=== PATIENT | male | born 1990 | race Asian ===

== ENCOUNTER 2017-08-07 12:45 | Inpatient (IN) | payer OTHER ==
[2017-08-05 04:00] VITALS: BP 126/80
[~2017-08-07] VITALS: Ht 167.6 cm; Wt 73.0 kg
[2017-08-07 12:51] VITALS: BP 109/71
[2017-08-07] MEDS ORDERED: Ampicillin/Sulbactam Sod 3 GM in NS 110 ML IVPB ONE (13:45)
[2017-08-07] MEDS ORDERED: Unasyn 3gm Inj ONE (14:09)
[2017-08-07 14:24] LABS: BASOPHILS % (AUTO) 0.9 % (0.0-2.0); EOSINOPHILS % (AUTO) 1.6 % (0.0-3.0); LYMPHOCYTES % (AUTO) 27.3 % (20.0-45.0); MEAN CORPUSCULAR HEMOGLOBIN 29.9 PG (27.0-31.0); MEAN CORPUSCULAR HGB CONC 32.6 G/DL (32.0-36.0); MEAN CORPUSCULAR VOLUME 92 FL (80-99); MEAN PLATELET VOLUME 8.9 FL (6.5-10.1); MONOCYTES % (AUTO) 8.1 % (1.0-10.0); NEUTROPHILS % (AUTO) 62.1 % (45.0-75.0); PLATELET COUNT 249 K/UL (150-450); RED BLOOD COUNT 4.65 M/UL (4.70-6.10); RED CELL DISTRIBUTION WIDTH 11.3 % (11.6-14.8); WHITE BLOOD COUNT 7.1 K/UL (4.8-10.8)
[2017-08-07 14:42] LABS: ALANINE AMINOTRANSFERASE 13 U/L (3-41); ALBUMIN/GLOBULIN RATIO 1.7 (1.0-2.7); ANION GAP 15 (5-15); ASPARTATE AMINO TRANSFERASE 15 U/L (5-40); CALCIUM 9.5 mg/dL (8.6-10.2); CARBON DIOXIDE 26 mEQ/L (20-30); CHLORIDE 100 mEQ/L (98-107); CREATININE 0.9 mg/dL (0.7-1.2); GLOMERULAR FILTRATION RATE > 60 mL/min (>60); HEMOLYSIS 5; SODIUM 141 mEQ/L (135-145); TOTAL PROTEIN 7.1 g/dL (6.6-8.7)
[2017-08-07] MEDS ORDERED: Morphine Sulfate 4mg/ml Inj IVP PRN (14:45)
[2017-08-07] MEDS ORDERED: Miralax 17gm pkt ORAL PRN (14:45)
[2017-08-07] MEDS ORDERED: Mylanta II UD 30ml ORAL PRN (14:45)
[2017-08-07] MEDS ORDERED: Morphine Sulfate 2mg/ml Inj IVP PRN (14:45)
--- NOTE | 2017-08-07 14:47 | Emergency Room Report ---
History of Present Illness General Chief Complaint: General Complaint Source: Patient Present Illness HPI 27-year-old male presents to ED for evaluation. Patient presents with hidradenitis to his bilateral groin into his left axilla. Has been there for several months. Has had previous operation on the groin area without success. Patient referred by Dr. Mccann for evaluation. Denies fevers or chills. Denies pain. No other aggravating relieving factors. Denies any other associated symptoms Allergies: Coded Allergies: No Known Allergies (Unverified , 08/07/17) Patient History Past Medical History: none Past Surgical History: none Pertinent Family History: none Social History: Denies: smoking, alcohol use, drug use Immunizations: UTD Reviewed Nursing Documentation: PMH: Agreed, PSxH: Agreed Nursing Documentation-PMH Past Medical History: No History, Except For Review of Systems All Other Systems: negative except mentioned in HPI Physical Exam Vital Signs Date Time Temp Pulse Resp B/P (MAP) Pulse Ox O2 Delivery O2 Flow Rate FiO2 08/07/17 12:51 97.9 73 16 109/71 99 Room Air Sp02 EP Interpretation: reviewed, normal General Appearance: no apparent distress, alert, GCS 15, non-toxic Head: normocephalic, atraumatic Eyes: bilateral eye normal inspection, bilateral eye PERRL ENT: hearing grossly normal, normal pharynx, no angioedema, normal voice Neck: full range of motion, supple/symm/no masses Respiratory: chest non-tender, lungs clear, normal breath sounds, speaking full sentences Cardiovascular #1: regular rate, rhythm, no edema Cardiovascular #2: 2+ carotid (R), 2+ carotid (L), 2+ radial (R), 2+ radial (L) , 2+ dorsalis pedis (R), 2+ dorsalis pedis (L) Gastrointestinal: normal bowel sounds, non tender, soft, non-distended, no guarding, no rebound Rectal: deferred Genitourinary: normal inspection, no CVA tenderness Musculoskeletal: back normal, gait/station normal, normal range of motion, non- tender Neurologic: alert, oriented x3, responsive, motor strength/tone normal, sensory intact, speech normal Psychiatric: judgement/insight normal, memory normal, mood/affect normal, no suicidal/homicidal ideation Reflexes: 3+ bicep (R), 3+ bicep (L), 3+ tricep (R), 3+ tricep (L), 3+ knee (R) , 3+ knee (L) Skin: no rash, warm/dry, well hydrated, other - groin hidradenitis, L axilla hidradenitis Lymphatic: no adenopathy Medical Decision Making Diagnostic Impression: Primary Impression: Hidradenitis ER Course Hospital Course 27-year-old male referred to ED for hidradenitis of his bilateral groin and L axilla Differential diagnoses include: Cellulitis, abscess, rash. Clinical course Patient placed on stretcher. After initial history and physical I ordered labs , blood Cx labs reviewed - no leukocytosis, Hb/Hct stable, no electrolyte abnormalities. antibiotics given. Dr. Mccann consulted and aware. Case discussed with Dr Arora and he agreed to accept the patient to his service for further care and support Diagnosis - hidradenitis Patient admitted to floor in serious condition Labs Test 08/07/17 14:00 White Blood Count 7.1 K/UL (4.8-10.8) Red Blood Count 4.65 M/UL (4.70-6.10) Hemoglobin 13.9 G/DL (14.2-18.0) Hematocrit 42.7 % (42.0-52.0) Mean Corpuscular Volume 92 FL (80-99) Mean Corpuscular Hemoglobin 29.9 PG (27.0-31.0) Mean Corpuscular Hemoglobin Concent 32.6 G/DL (32.0-36.0) Red Cell Distribution Width 11.3 % (11.6-14.8) Platelet Count 249 K/UL (150-450) Mean Platelet Volume 8.9 FL (6.5-10.1) Neutrophils (%) (Auto) 62.1 % (45.0-75.0) Lymphocytes (%) (Auto) 27.3 % (20.0-45.0) Monocytes (%) (Auto) 8.1 % (1.0-10.0) Eosinophils (%) (Auto) 1.6 % (0.0-3.0) Basophils (%) (Auto) 0.9 % (0.0-2.0) Sodium Level 141 mEQ/L (135-145) Potassium Level 4.0 mEQ/L (3.4-4.9) Chloride Level 100 mEQ/L (98-107) Carbon Dioxide Level 26 mEQ/L (20-30) Anion Gap 15 (5-15) Blood Urea Nitrogen 13 mg/dL (7-23) Creatinine 0.9 mg/dL (0.7-1.2) Estimat Glomerular Filtration Rate > 60 mL/min (>60) Glucose Level 103 mg/dL (74-106) Lactic Acid Level 1.00 mmol/L (0.66-2.22) Calcium Level 9.5 mg/dL (8.6-10.2) Total Bilirubin 0.2 mg/dL (0.0-1.2) Aspartate Amino Transf (AST/SGOT) 15 U/L (5-40) Alanine Aminotransferase (ALT/SGPT) 13 U/L (3-41) Alkaline Phosphatase 62 U/L (40-129) Total Protein 7.1 g/dL (6.6-8.7) Albumin 4.5 g/dL (3.5-5.2) Globulin 2.6 g/dL Albumin/Globulin Ratio 1.7 (1.0-2.7) Last Vital Signs Date Time Temp Pulse Resp B/P (MAP) Pulse Ox O2 Delivery O2 Flow Rate FiO2 08/07/17 12:51 97.9 73 16 109/71 99 Room Air Status: improved Disposition: ADMITTED INPATIENT Condition: Serious Referrals: NON PHYSICIAN (PCP) DHARA ROLDAN M.D. Aug 07, 2017 14:47
[2017-08-07 15:43] VITALS: BP 121/82
[2017-08-07] MEDS ORDERED: NKM (15:43)
[2017-08-07 16:00] VITALS: BP 119/71
[2017-08-07 16:55] VITALS: BP 115/66
--- NOTE | 2017-08-07 17:04 | History and Physical ---
History of Present Illness General Date patient seen: Aug 07, 2017 Time patient seen: 18:00 Reason for Hospitalization: abscess Present Illness HPI 27y/o male with pmh of hidradenitis suppurative who presents with increased pain /swelling/redness/drainage from lesions. Pt presents with hidradenitis to his bilateral groin into his left axilla. Has been there for several months. He has been on oral antibiotics and has had previous operation on the groin area without success. No reports of fevers/chills, n/v, d/c, chest pain, SOB. Can ambulate several blocks and climb several flights of stairs without symptoms. Allergies: Coded Allergies: No Known Allergies (Unverified , 08/07/17) Medication History Scheduled No Known Medications* (NKM - No Known Medications*), 0 ., (Reported) Patient History Healthcare decision maker Resuscitation status Advanced Directive on File Past Medical/Surgical History Past Medical/Surgical History: (1) Hidradenitis suppurativa Family History Family History: FH: HTN (hypertension) Social History Social History: (1) Social drinker Review of Systems ROS Narrative CONSTITUTIONAL: No weight loss, fever, chills, weakness or fatigue. HEENT: Eyes: No visual loss, blurred vision, double vision or yellow sclerae. Ears, Nose, Throat: No hearing loss, sneezing, congestion, runny nose or sore throat. SKIN: No rash or itching. CARDIOVASCULAR: No chest pain, chest pressure or chest discomfort. No palpitations or edema. RESPIRATORY: No shortness of breath, cough or sputum. GASTROINTESTINAL: No anorexia, nausea, vomiting or diarrhea. No abdominal pain or blood. NEUROLOGICAL: No headache, dizziness, syncope, paralysis, ataxia, numbness or tingling in the extremities. No change in bowel or bladder control. MUSCULOSKELETAL: No muscle, back pain, joint pain or stiffness. HEMATOLOGIC: No anemia, bleeding or bruising. LYMPHATICS: No enlarged nodes. No history of splenectomy. PSYCHIATRIC: No history of depression or anxiety. ENDOCRINOLOGIC: No reports of sweating, cold or heat intolerance. No polyuria or polydipsia. ALLERGIES: No history of asthma, hives, eczema or rhinitis. Physical Exam Physical Exam Narrative General: alert, cooperative, no distress, appears stated age Head: normocephalic, without obvious abnormality, atraumatic Eyes: conjunctivae/corneas clear. PERRL, EOM's intact Throat: lips, mucosa, and tongue normal. MMM Neck: supple, symmetrical, trachea midline, and no JVD Lungs: clear to auscultation bilaterally Heart: regular rate and rhythm, S1, S2 normal, no murmur, click, rub or gallop Abdomen: soft, non-tender, non-distended, bowel sounds normal; no masses or organomegaly Extremities: extremities normal, atraumatic, no cyanosis or edema Pulses: 2+ and symmetric Skin: groin hidradenitis, L axilla hidradenitis Neurologic: grossly normal, no focal deficits Last 24 Hour Vital Signs Date Time Temp Pulse Resp B/P (MAP) Pulse Ox O2 Delivery O2 Flow Rate FiO2 08/07/17 16:00 97.6 67 19 119/71 97 Room Air 08/07/17 15:47 98.0 79 18 121/82 99 Room Air 08/07/17 15:43 98.0 79 18 121/82 99 Room Air 08/07/17 12:51 97.9 73 16 109/71 99 Room Air 08/07/17 12:51 97.9 73 16 109/71 99 Room Air Intake and Output 08/07/17 08/08/17 19:00 07:00 Intake Total 110 ml Balance 110 ml Intake Oral 0 ml IV Total 110 ml Laboratory Tests Test 08/07/17 14:00 White Blood Count 7.1 K/UL (4.8-10.8) Red Blood Count 4.65 M/UL (4.70-6.10) L Hemoglobin 13.9 G/DL (14.2-18.0) L Hematocrit 42.7 % (42.0-52.0) Mean Corpuscular Volume 92 FL (80-99) Mean Corpuscular Hemoglobin 29.9 PG (27.0-31.0) Mean Corpuscular Hemoglobin Concent 32.6 G/DL (32.0-36.0) Red Cell Distribution Width 11.3 % (11.6-14.8) L Platelet Count 249 K/UL (150-450) Mean Platelet Volume 8.9 FL (6.5-10.1) Neutrophils (%) (Auto) 62.1 % (45.0-75.0) Lymphocytes (%) (Auto) 27.3 % (20.0-45.0) Monocytes (%) (Auto) 8.1 % (1.0-10.0) Eosinophils (%) (Auto) 1.6 % (0.0-3.0) Basophils (%) (Auto) 0.9 % (0.0-2.0) Sodium Level 141 mEQ/L (135-145) Potassium Level 4.0 mEQ/L (3.4-4.9) Chloride Level 100 mEQ/L (98-107) Carbon Dioxide Level 26 mEQ/L (20-30) Anion Gap 15 (5-15) Blood Urea Nitrogen 13 mg/dL (7-23) Creatinine 0.9 mg/dL (0.7-1.2) Estimat Glomerular Filtration Rate > 60 mL/min (>60) Glucose Level 103 mg/dL (74-106) Lactic Acid Level 1.00 mmol/L (0.66-2.22) Calcium Level 9.5 mg/dL (8.6-10.2) Total Bilirubin 0.2 mg/dL (0.0-1.2) Aspartate Amino Transf (AST/SGOT) 15 U/L (5-40) Alanine Aminotransferase (ALT/SGPT) 13 U/L (3-41) Alkaline Phosphatase 62 U/L (40-129) Total Protein 7.1 g/dL (6.6-8.7) Albumin 4.5 g/dL (3.5-5.2) Globulin 2.6 g/dL Albumin/Globulin Ratio 1.7 (1.0-2.7) Height (Feet): 5 Height (Inches): 7.00 Weight (Pounds): 161 Medications Current Medications Medications (Trade) Dose Ordered Sig/Vic Route PRN Reason Start Time Stop Time Status Last Admin Dose Admin Acetaminophen (Tylenol) 650 mg Q4H PRN ORAL Mild Pain (Pain Scale 1-3) 08/07/17 14:45 09/06/17 14:44 Al Hydroxide/Mg Hydroxide (Mylanta II) 30 ml Q6H PRN ORAL dyspepsia 08/07/17 14:45 09/06/17 14:44 Bisacodyl (Dulcolax) 10 mg HSPRN PRN RECTAL Constipation 08/07/17 21:00 09/06/17 20:59 Dextrose (Dextrose 50%) STAT PRN IV Hypoglycemia 08/07/17 14:45 09/06/17 14:44 Dextrose/Sodium Chloride 1,000 ml @ 75 mls/hr [id number] IV 08/08/17 06:00 09/07/17 05:59 Diphenhydramine HCl (Benadryl) 25 mg Q6H PRN ORAL Itching/Pruritis 08/07/17 15:30 09/06/17 15:29 Docusate Sodium (Colace) 100 mg EVERY 12 HOURS ORAL 08/07/17 21:00 09/06/17 20:59 Magnesium Hydroxide (Mom) 30 ml HSPRN PRN ORAL Constipation 08/07/17 14:45 09/06/17 14:44 Morphine Sulfate (Morphine Sulfate) 2 mg Q4H PRN IVP Moderate Pain (Pain Scale 4-6) 08/07/17 14:45 08/14/17 14:44 Morphine Sulfate (Morphine Sulfate) 4 mg Q4H PRN IVP Severe Pain (Pain Scale 7-10) 08/07/17 14:45 08/14/17 14:44 Ondansetron HCl (Zofran) 4 mg Q6H PRN IVP Nausea & Vomiting 08/07/17 14:45 09/06/17 14:44 Polyethylene Glycol (Miralax) 17 gm HSPRN PRN ORAL Constipation 08/07/17 14:45 09/06/17 14:44 Zolpidem Tartrate (Ambien) 5 mg HSPRN PRN ORAL Insomnia 08/07/17 21:00 08/14/17 20:59 Assessment/Plan Problem List: (1) Abscess ICD Codes: L02.91 - Cutaneous abscess, unspecified SNOMED: [id number] (2) Hidradenitis suppurativa ICD Codes: L73.2 - Hidradenitis suppurativa SNOMED: 81036022 Status: stable Assessment/Plan Admit inpt Plastic surgery consulted Check blood cultures x 2 IV ancef Pain control, bowel regimen Supportive care SCDs for DVT ppx If patient is required to have surgery, based on the patient's medical history, and other available ancillary data, the patient is a LOW risk for an INTERMEDIATE risk procedure. Per the most recent ACC/AHA guidelines, the patient does not need any further cardiopulmonary testing prior to the procedure and there do not appear to be any clear medical contraindications to proceeding with the proposed procedure. D/w pt/family, RN, surgery regarding mgmt and dispo. Discussed w/ Dr. Mccann re plan for OR tomorrow Danielle Daigle M.D. Aug 07, 2017 17:04
[2017-08-07 17:10] VITALS: BP 141/71
[2017-08-07] MEDS: Milk of Magnesia 30ml Ud ORAL PRN (18:37)
[2017-08-07] MEDS: Docusate 100mg cap ORAL SCH (18:37)
[2017-08-07 20:00] VITALS: BP 108/72
[2017-08-07] MEDS ORDERED: Zolpidem 5mg tab ORAL PRN (21:00)
[2017-08-08] VITALS (9 sets, daily range): BP systolic 102–158; BP diastolic 63–99
[2017-08-08 05:12] LABS: INR 1.1 (0.9-1.1)
[2017-08-08] MEDS: D5 1/2NS 1,000 ML IV SCH ×2 (06:04→14:55)
--- NOTE | 2017-08-08 07:06 | Pre-Procedure Note/Attestation ---
Pre-Procedure Note/Attestation Complete Prior to Procedure Planned Procedure: bilateral Procedure Narrative: Debridement of left axillary tissue with flap elevation with bilateral groin debridement and buttock debridement and partial closure Attestation I attest that I discussed the nature of the procedure; its benefits; risks and complications; and alternatives (and the risks and benefits of such alternatives ), prior to the procedure, with the patient (or the patient's legal direct sales representative). I attest that, if there was a reasonable possibility of needing a blood transfusion, the patient (or the patient's legal direct sales representative) was given the [facility] standardized written summary, pursuant to the [place] Blood Safety Act ([place] Health and Safety Code # 1645, as amended). I attest that I re-evaluated the patient just prior to the surgery and that there has been no change in the patient's H&P, except as documented below: AIMEE SILVERIO Aug 08, 2017 07:06
[2017-08-08] MEDS ORDERED: PCA Education Pamphlet MISC SCH (07:15)
[2017-08-08] MEDS ORDERED: Surgicel 4in x 8in TOPIC ONE (07:20)
[2017-08-08] MEDS ORDERED: Lidocaine 1% 10mg/ml/Epi 0.005mg/ml 10ml vial ONE (07:21)
[2017-08-08] MEDS ORDERED: Bacitracin 50000 Units Vial ONE (07:21)
[2017-08-08] MEDS ORDERED: NeoSporin Gu Irrig 1ml Amp IRRIG ONE (07:21)
[2017-08-08] MEDS ORDERED: Zemuron 50mg/5ml Inj IV ONE (08:00)
[2017-08-08] MEDS ORDERED: Rate Change PCA 1 Each MISC PRN (08:00)
[2017-08-08] MEDS ORDERED: LR 1000ml ONE (08:00)
[2017-08-08] MEDS ORDERED: Lidocaine 1% MPF 10mg/ml 5ml ONE (08:00)
[2017-08-08] MEDS ORDERED: Sterile Water Irrig 1000ml IRRIG ONE (08:00)
[2017-08-08] MEDS ORDERED: Neostigmine 1mg/ml 10ml Inj ONE (08:00)
[2017-08-08] MEDS ORDERED: Midazolam 2mg/2ml Inj ONE (08:00)
[2017-08-08] MEDS ORDERED: Ketorolac 30mg Inj ONE (08:00)
[2017-08-08] MEDS ORDERED: Propofol 200mg/20ml IV ONE (08:00)
[2017-08-08] MEDS ORDERED: fentaNYL 100 mcg/2 mL IV ONE (08:00)
[2017-08-08] MEDS ORDERED: Succinylcholine 20mg/ml 10ml vial ONE (08:00)
[2017-08-08] MEDS ORDERED: Sodium Chloride 10ml vial INJ ONE (08:00)
[2017-08-08] MEDS ORDERED: NS Irrig 1000ml ONE (08:00)
[2017-08-08] MEDS ORDERED: Morphine Sulfate 10mg/ml Inj ONE (08:00)
[2017-08-08] MEDS ORDERED: Glycopyrrolate 0.2mg/ml 1ml Vial ONE (08:00)
[2017-08-08] MEDS ORDERED: LR 1000ml 1,000 ML IVLG SCH (08:17)
--- NOTE | 2017-08-08 08:17 | Anethesia Preoperative Eval ---
Anesthesia Pre-op PMH/ROS General Date of Evaluation: Aug 08, 2017 Time of Evaluation: 07:20 Anesthesiologist: Jessica ASA Score: ASA 2 Mallampati Score Class I : Soft palate, uvula, fauces, pillars visible Class II: Soft palate, uvula, fauces visible Class III: Soft palate, base of uvula visible Class IV: Only hard plate visible Mallampati Classification: Class II Surgeon: Soibhan Diagnosis: Recurrent HS Surgical Procedure: Excision of L axillary and bilateral groin HS Anesthesia History: none Family History: no anesthesia problems Allergies: Coded Allergies: No Known Allergies (Unverified , 08/07/17) Medications: see eMAR Past Medical History Cardiovascular: Reports: HTN, Denies: CAD, ND, valve dz, arrhythmia, other Gastrointestinal/Genitourinary: Denies: GERD, CRI, ESRD, other Neurologic/Psychiatric: Reports: depression/anxiety, Denies: dementia, CVA, TIA, other Endocrine: Denies: DM, hypothyroidism, steroids, other HEENT: Denies: cataract (L), cataract (R), glaucoma, [place] (L), [place] (R), other Hematology/Immune: Denies: anemia, DVT, bleeding disorder, other Musculoskeletal/Integumentary: Reports: other - recurent HS, Denies: OA, RA, DJD, DDD, edema PMH Narrative: as above PSxH Narrative: surgical HS treatment Anesthesia Pre-op Phys. Exam Physician Exam Last Vital Signs Date Time Temp Pulse Resp B/P (MAP) Pulse Ox O2 Delivery O2 Flow Rate FiO2 08/08/17 00:00 97.8 66 18 102/70 98 Room Air Constitutional: NAD Neurologic: CN 2-12 intact Cardiovascular: RRR, no M/R/G Respiratory: CTA Gastrointestinal: S/NT/ND Airway Exam Mallampati Score: Class II MO: full Neck: flexible ROM: full Teeth: intact Dentures: no upper, no lower Anesthesia Pre-op A/P Labs Hematology Test 08/07/17 14:00 White Blood Count 7.1 K/UL (4.8-10.8) Red Blood Count 4.65 M/UL (4.70-6.10) L Hemoglobin 13.9 G/DL (14.2-18.0) L Hematocrit 42.7 % (42.0-52.0) Mean Corpuscular Volume 92 FL (80-99) Mean Corpuscular Hemoglobin 29.9 PG (27.0-31.0) Mean Corpuscular Hemoglobin Concent 32.6 G/DL (32.0-36.0) Red Cell Distribution Width 11.3 % (11.6-14.8) L Platelet Count 249 K/UL (150-450) Mean Platelet Volume 8.9 FL (6.5-10.1) Neutrophils (%) (Auto) 62.1 % (45.0-75.0) Lymphocytes (%) (Auto) 27.3 % (20.0-45.0) Monocytes (%) (Auto) 8.1 % (1.0-10.0) Eosinophils (%) (Auto) 1.6 % (0.0-3.0) Basophils (%) (Auto) 0.9 % (0.0-2.0) Coagulation Test 08/08/17 04:45 Prothrombin Time 11.0 SEC (9.30-11.50) Prothromb Time International Ratio 1.1 (0.9-1.1) Activated Partial Thromboplast Time 31 SEC (23-33) Chemistry Test 08/07/17 14:00 Sodium Level 141 mEQ/L (135-145) Potassium Level 4.0 mEQ/L (3.4-4.9) Chloride Level 100 mEQ/L (98-107) Carbon Dioxide Level 26 mEQ/L (20-30) Anion Gap 15 (5-15) Blood Urea Nitrogen 13 mg/dL (7-23) Creatinine 0.9 mg/dL (0.7-1.2) Estimat Glomerular Filtration Rate > 60 mL/min (>60) Glucose Level 103 mg/dL (74-106) Lactic Acid Level 1.00 mmol/L (0.66-2.22) Calcium Level 9.5 mg/dL (8.6-10.2) Total Bilirubin 0.2 mg/dL (0.0-1.2) Aspartate Amino Transf (AST/SGOT) 15 U/L (5-40) Alanine Aminotransferase (ALT/SGPT) 13 U/L (3-41) Alkaline Phosphatase 62 U/L (40-129) Total Protein 7.1 g/dL (6.6-8.7) Albumin 4.5 g/dL (3.5-5.2) Globulin 2.6 g/dL Albumin/Globulin Ratio 1.7 (1.0-2.7) Studies Pre-op Studies: EKG - NSR Risk Assessment & Plan Assessment: ASA 2 Plan: GA with ETT Status Change Before Surgery: No Pre-Antibiotics Drug: Ancef 2 gr. Given Within 1 Hr of Incision: Yes Time Given: 08:02 SOILA BABCOCK M.D. Aug 08, 2017 08:17
[2017-08-08] MEDS ORDERED: Hydromorphone 0.5mg/0.5ml inj IVP PRN (08:30)
[2017-08-08] MEDS ORDERED: Ketorolac 30mg Inj IV PRN (08:30)
[2017-08-08] MEDS ORDERED: Meperidine 25mg/0.5ml Inj (FOR RIGORS ONLY) IV PRN (08:30)
[2017-08-08] MEDS ORDERED: DiphenhydrAMINE 50mg/ml Inj IVP PRN (08:30)
[2017-08-08] MEDS ORDERED: Midazolam 2mg/2ml Inj IVP PRN (08:30)
[2017-08-08] MEDS ORDERED: Metoclopramide 10mg/2ml Inj IVP PRN (08:30)
[2017-08-08] MEDS: Docusate 100mg cap ORAL SCH ×2 (09:00→22:20)
[2017-08-08] MEDS: Heparin 5000 units/ml inj SUBQ SCH ×2 (09:00→21:00)
--- NOTE | 2017-08-08 09:50 | Operative Note - PDOC ---
Operative Note Operative Note Pre-op Diagnosis: Bilateral groin and left axillary infection Procedure: Debridement of bilateral groin and left axilla with flap elevation Post-op Diagnosis: same as pre-op Anesthesia: general Specimen: yes Complications: none Condition: stable Estimated Blood Loss: minimal Drains: ALIRIO Implant(s) used?: No AIMEE SILVERIO Aug 08, 2017 09:50
[2017-08-08] MEDS: PCA HYDROmorphone 1mg/ml 30 ML IV PRN (10:16)
--- NOTE | 2017-08-08 11:38 | Immediate Post-Op Evaluation ---
Immediate Post-Op Evalulation Immediate Post-Op Evalulation Procedure: Excisional of bilateral groin and L axillary HS Date of Evaluation: Aug 08, 2017 Time of Evaluation: 10:18 IV Fluids: 1300 Blood Products: none Estimated Blood Loss: 50 Urinary Output: none Blood Pressure Systolic: 116 Blood Pressure Diastolic: 72 Pulse Rate: 86 Respiratory Rate: 20 O2 Sat by Pulse Oximetry: 99 Temperature (Fahrenheit): 98.5 Pain Score (1-10): 2 Nausea: No Vomiting: No Complications none Patient Status: reacts, patent, extubated, none Hydration Status: adequate SOILA BABCOCK M.D. Aug 08, 2017 11:38
--- NOTE | 2017-08-08 16:34 | Cardiology Report ---
APPROVED REPORT EKG Measurement Heart [id number] Normal sinus rhythm Normal ECG
[2017-08-08] MEDS: PCA shift volume MISC SCH (19:29)
--- NOTE | 2017-08-08 21:45 | Operative Note - Dictated ---
DATE OF OPERATION: 08/08/2017 PREOPERATIVE DIAGNOSES: 1. Left axillary infected tissue. 2. Bilateral groin hidradenitis. 3. Right buttock infected tissue. POSTOPERATIVE DIAGNOSES: 1. Left axillary infected tissue. 2. Bilateral groin hidradenitis. 3. Right buttock infected tissue. PROCEDURES: 1. Radical excision of left axillary tissue. 2. Elevation of a lateral chest wall flap for staged closure of left axillary wound. 3. Elevation of a left thoracodorsal artery flap for staged closure of left axillary wound. 4. Debridement of right groin tissue. 5. Debridement of left groin tissue. 6. Elevation of a right medial thigh flap for staged closure of right groin wound. 7. Elevation of the left medial thigh flap for staged closure of left groin wound. 8. Radical excision of right buttock tissue. SURGEON: Rhea Mccann M.D. CERAMICS TEST ENGINEER: Amarilis Bradley M.D. ANESTHESIA: General. COMPLICATIONS: None. DRAINS: Included one ALIRIO in each groin size #15. DISPOSITION: Stable to the recovery room. Indications For Surgery: This is a 27-year-old male, who has multiple areas of infected tissue associated with hidradenitis in his axilla, bilateral groin, and buttock areas. He was admitted through the emergency room for the infection and was started on IV antibiotics and I felt that he was an appropriate candidate for radical excision and reconstruction. In the axillary and buttock regions, given the degree of infection, I felt that it was not appropriate for definitive closure. However in the bilateral groin areas because the disease was not as active, I felt that it was appropriate to perform a simultaneous radical excision with reconstruction. He understood the risks and benefits of surgery and agreed to proceed. Details Of The Operation: The patient was brought to the operating room and laid in the supine position on the operating room table. His bilateral groins and upper thighs as well as his left axilla were prepped and draped in a sterile and usual fashion. We first began by injecting a total of 5 mL of lidocaine with epinephrine into the axillary region following a design of the radical excision markings as well as markings to the flap for the thoracodorsal artery flap. Once this was done, the #10 blade was then used to excise the axillary tissue. Electrocautery was then used to radically excise the tissue all the way down to the level of the axillary fascia. We made the incisions around the thoracodorsal artery flap. We elevated this all the way down to the level of the latissimus muscle fascia and this was based off of perforators of the thoracodorsal artery. With this flap elevated, we also proceeded to elevate the lateral chest wall flap just off of the latissimus muscle as well. This was based off of the intercostal arteries. With this flap fully mobilized we noted that the combination of the thoracodorsal artery flap as well as lateral chest wall flap would allow for definitive tension-free closure of the wound. However given the abscess that was present, we just proceeded to irrigate the wound with pulse lavage and achieved hemostasis and we planned on performing definitive flap inset and closure of the wound within 48 hours. As such, once hemostasis was achieved, the thoracodorsal artery flap was then re-inset and the wound was packed. We then turned our attention to the bilateral groin wounds, markings were made for the incision, and we first began on the left side by using a #10 blade to excise the ellipse around the infected tissue and the scarring and this was carried down all the way down to the Ollie's fascia and in a similar fashion, the contralateral groin or the right groin wound tissue was also excised. With this done, both wounds measured approximately 8 x 5 cm and were not amenable to primary closure. As such, we first began by elevating a medial thigh flap based off of the perforators of the superficial femoral artery on the left side with proximal and distal incisions made to fully mobilize the flap. The flap was elevated just above the adductor fascia and once this was done, the wound was copiously irrigated with pulse lavage and hemostasis was achieved. We then turned our attention to the contralateral groin wound on the right side. The right medial thigh flap was also elevated with perforators of the superficial femoral artery perfusing this flap with proximal and distal incisions made to also fully mobilize this flap and this was elevated above the adductor fascia level. Hemostasis was achieved on this side as well and the wound was then copiously irrigated with pulse lavage and we then proceeded to place a size #15 ALIRIO in each wound and the wounds were closed with #0 and 2-0 Vicryl sutures and a running 3-0 Prolene was used to close the skin along with multiple interrupted 2-0 Prolene sutures to reinforce the closure. Lastly, we turned our attention to the infected right buttock tissue. Markings were made around the area. A #10 blade was then used to radically excise the tissue all the way down to the level of the subcutaneous fat. The specimen was removed. The defect that resulted was 8 x 6 cm and was clearly not amenable to definitive closure. However, there was a significant amount of infection present within this wound and despite being able to close the left and right groin wounds, I felt that it was not appropriate to close this wound at this time and the plan will be to bring the patient back to the operating room for definitive closure of this right buttock wound as well as the left axillary wound. Hemostasis was achieved after pulse lavage and dressings were applied. The patient tolerated the procedure well and there were no complications. Rhea Mccann M.D. DR: JACINTO JOB#: [id number] CC:
[2017-08-09] VITALS: BP 129/83
--- NOTE | 2017-08-09 03:00 | Consultation ---
DATE OF CONSULTATION: 08/08/2017 CONSULTING PHYSICIAN: Rhea Mccann M.D. ATTENDING PHYSICIAN: Lesley Gong M.D. Reason For Consultation: Bilateral groin and left axillary infection. History Of Present Illness: This is a 27-year-old male, admitted through the emergency room for left axillary, bilateral groin, and left buttock abscesses. He was seen by the medical team and admitted and started on IV antibiotics. He had been complaining of significant pain and drainage in the area for the past several months and presented with these symptoms. Past Medical History: Significant for previous incision and drainage. Past Surgical History: Significant for previous incision and drainage. ALLERGIES: None. MEDICATIONS: Include previously he was on antibiotics. PHYSICAL EXAMINATION: GENERAL: The patient is alert and oriented x3. HEART: Regular rate and rhythm. ABDOMEN: Soft, nontender, and nondistended. Extremities: Examination of left axilla reveals an area of induration with an abscess in the mid axillary region as well as bilateral groin, scarring and evidence of hidradenitis as well as a large abscess in the left buttock region. Assessment And Plan: This is a 27-year-old male, who has multiple layers of infected tissue secondary to hidradenitis that will require radical excision of these areas with staged reconstruction as well as closure of the mild areas. Rhea Mccann M.D. DR: AURORA JOB#: [id number] CC:
[2017-08-09 04:00] VITALS: BP 134/77
[2017-08-09 04:09] LABS: BASOPHILS % (AUTO) 0.6 % (0.0-2.0); EOSINOPHILS % (AUTO) 0.5 % (0.0-3.0); LYMPHOCYTES % (AUTO) 16.2 % (20.0-45.0); MEAN CORPUSCULAR HEMOGLOBIN 30.2 PG (27.0-31.0); MEAN CORPUSCULAR HGB CONC 32.6 G/DL (32.0-36.0); MEAN CORPUSCULAR VOLUME 93 FL (80-99); MONOCYTES % (AUTO) 7.4 % (1.0-10.0); NEUTROPHILS % (AUTO) 75.3 % (45.0-75.0); PLATELET COUNT 197 K/UL (150-450); RED BLOOD COUNT 4.32 M/UL (4.70-6.10); RED CELL DISTRIBUTION WIDTH 11.5 % (11.6-14.8); WHITE BLOOD COUNT 7.7 K/UL (4.8-10.8)
--- NOTE | 2017-08-09 05:46 | General Progress Note ---
Assessment/Plan Problem List: (1) Abscess ICD Codes: L02.91 - Cutaneous abscess, unspecified SNOMED: 930604635 (2) Hidradenitis suppurativa ICD Codes: L73.2 - Hidradenitis suppurativa SNOMED: 92184210 Status: stable Assessment/Plan Plastic surgery consulted s/p s/p debridement of bilateral groin and left axilla with flap elevation on - encourage mobilization/ambulation - encourage incentive spirometry to optimize pulmonary hygiene - DVT/GI prophylaxis as appropriate--SCDs, HSQ F/u blood cultures x 2 IV ancef Pain control, bowel regimen Supportive care SCDs for DVT ppx A total of 32min of extra time was spent in addition to normal encounter time for care/coordination and counseling. D/w pt/family, RN, surgery regarding mgmt and dispo. Discussed w/ RN re dizziness Subjective Date patient seen: Aug 08, 2017 Time patient seen: 13:00 Constitutional: Reports: no symptoms HEENT: Reports: no symptoms Cardiovascular: Reports: lightheadedness Respiratory: Reports: no symptoms Gastrointestinal/Abdominal: Reports: nausea Genitourinary: Reports: no symptoms Neurologic/Psychiatric: Reports: no symptoms Endocrine: Reports: no symptoms Hematologic/Lymphatic: Reports: no symptoms Allergies: Coded Allergies: No Known Allergies (Unverified , 08/07/17) Subjective No acute o/n events s/p debridement of bilateral groin and left axilla with flap elevation today Pain controlled. Feeling some dizziness and nausea. Denies f/c, emesis, chest pain, SOB Objective Last 24 Hour Vital Signs Date Time Temp Pulse Resp B/P (MAP) Pulse Ox O2 Delivery O2 Flow Rate FiO2 08/09/17 04:00 18 08/09/17 00:00 19 08/09/17 00:00 97.4 87 18 129/83 100 Nasal Cannula 2.0 08/08/17 22:00 99 Nasal Cannula 2.0 28 08/08/17 20:00 97.9 84 18 158/99 100 Nasal Cannula 2.0 08/08/17 20:00 18 08/08/17 20:00 Nasal Cannula 2.0 28 08/08/17 16:00 18 08/08/17 13:00 98.0 71 16 136/78 97 Room Air 08/08/17 11:38 86 20 99 08/08/17 11:37 95.0 64 15 149/84 100 Room Air 08/08/17 11:30 18 08/08/17 11:12 97.6 68 15 118/73 97 Room Air 08/08/17 11:00 18 08/08/17 10:45 97.5 63 15 135/63 96 Room Air 08/08/17 10:45 15 08/08/17 10:32 16 08/08/17 10:30 66 14 140/77 98 Room Air 08/08/17 10:20 67 15 144/79 100 Room Air 08/08/17 10:16 15 08/08/17 10:12 97.5 92 20 141/81 100 Room Air Laboratory Tests 08/09/17 04:00: White Blood Count 7.7, Red Blood Count 4.32L, Hemoglobin 13.0L, Hematocrit 39.9L , Mean Corpuscular Volume 93, Mean Corpuscular Hemoglobin 30.2, Mean Corpuscular Hemoglobin Concent 32.6, Red Cell Distribution Width 11.5L, Platelet Count 197, Mean Platelet Volume 9.0, Neutrophils (%) (Auto) 75.3H, Lymphocytes (%) (Auto) 16.2L, Monocytes (%) (Auto) 7.4, Eosinophils (%) (Auto) 0.5, Basophils (%) (Auto) 0.6 Height (Feet): 5 Height (Inches): 7.00 Weight (Pounds): 161 Danielle Daigle M.D. Aug 09, 2017 05:46
[2017-08-09] MEDS ORDERED: D5 1/2NS 1,000 ML IV SCH (06:00)
[2017-08-09] MEDS ORDERED: ceFAZolin 1gm/50ml Premix 50 ML IV SCH (06:00)
[2017-08-09] MEDS: PCA shift volume MISC SCH ×2 (07:00→19:22)
[2017-08-09] MEDS ORDERED: Lidocaine 1% 10mg/ml/Epi 0.005mg/ml 30ml vial INJ ONE ×2 (07:30→08:00)
[2017-08-09] MEDS ORDERED: Surgicel 4in x 8in TOPIC ONE (07:40)
[2017-08-09 07:55] VITALS: BP 137/77
[2017-08-09] MEDS: ceFAZolin 1gm in D5W 55ml IVP SCH ×3 (08:20→21:18)
[2017-08-09] MEDS: Heparin 5000 units/ml inj SUBQ SCH ×2 (09:00→21:00)
[2017-08-09] MEDS: D5 1/2NS 1,000 ML IV SCH ×2 (10:06→18:59)
[2017-08-09] MEDS: Docusate 100mg cap ORAL SCH ×2 (10:06→21:18)
--- NOTE | 2017-08-09 10:44 | General Progress Note ---
Progress Note Progress Note Pt seen and examined. POD# 1. Had urinary retention last night which required placement of gaming. Also needed dressing changes to left axilla twice due to blood soakage but no active bleeding was noted just some oozing. Hemodynamically stable and Hct is stable. Will go to OR in am for closure of axillary and buttock wound. Aimee Silverio M.D. AIMEE SILVERIO Aug 09, 2017 10:44
[2017-08-09] MEDS: PCA HYDROmorphone 1mg/ml 30 ML IV PRN (11:15)
[2017-08-09 11:45] VITALS: BP 135/84
--- NOTE | 2017-08-09 12:53 | 48 Hour Post Anesthesia Eval ---
Post Anesthesia Evaluation Procedure: Excisional of bilateral groin and L axillary HS Date of Evaluation: Aug 09, 2017 Time of Evaluation: 12:52 Blood Pressure Systolic: 116 0: 58 Pulse Rate: 92 Respiratory Rate: 20 Temperature (Fahrenheit): 97.6 O2 Sat by Pulse Oximetry: 99 Airway: patent Nausea: No Vomiting: No Pain Intensity: 3 Hydration Status: adequate Cardiopulmonary Status: stable Mental Status/LOC: patient returned to baseline Follow-up Care/Observations: n/a Post-Anesthesia Complications: none Follow-up care needed: N/A SOILA BABCOCK M.D. Aug 09, 2017 12:53
[2017-08-09 16:00] VITALS: BP 138/83
[2017-08-09 20:00] VITALS: BP 147/87
--- NOTE | 2017-08-09 23:12 | General Progress Note ---
Assessment/Plan Problem List: (1) Abscess ICD Codes: L02.91 - Cutaneous abscess, unspecified SNOMED: 111136938 (2) Hidradenitis suppurativa ICD Codes: L73.2 - Hidradenitis suppurativa SNOMED: 95299972 (3) Postoperative urinary retention ICD Codes: N99.89 - Other postprocedural complications and disorders of genitourinary system; R33.8 - Other retention of urine SNOMED: 009841783 Status: stable Assessment/Plan Plastic surgery consulted s/p s/p debridement of bilateral groin and left axilla with flap elevation on Plan for OR tomorrow Encourage mobilization/ambulation Encourage incentive spirometry to optimize pulmonary hygiene DVT/GI prophylaxis as appropriate--SCDs, HSQ F/u blood cultures x 2 IV ancef Pain control, bowel regimen Supportive care SCDs for DVT ppx A total of 32min of extra time was spent in addition to normal encounter time for care/coordination and counseling. D/w pt/family, RN, surgery regarding mgmt and dispo. Discussed w/ RN re ambulation Subjective Date patient seen: Aug 09, 2017 Time patient seen: 15:00 ROS Limited/Unobtainable: No Constitutional: Reports: no symptoms HEENT: Reports: no symptoms Cardiovascular: Reports: no symptoms Respiratory: Reports: no symptoms Gastrointestinal/Abdominal: Reports: no symptoms Genitourinary: Reports: no symptoms Neurologic/Psychiatric: Reports: no symptoms Endocrine: Reports: no symptoms Hematologic/Lymphatic: Reports: no symptoms Allergies: Coded Allergies: No Known Allergies (Unverified , 08/07/17) All Systems: reviewed and negative except above Subjective No acute o/n events s/p debridement of bilateral groin and left axilla with flap elevation yesterday POD#1 Pt with urinary retention postop and gaming placed Had saturated dressings x 2 overnight given oozing from surgical site. Hgb stable. No further oozing today Pain controlled. Denies f/c, emesis, chest pain, SOB. Wants to ambulate Objective Last 24 Hour Vital Signs Date Time Temp Pulse Resp B/P (MAP) Pulse Ox O2 Delivery O2 Flow Rate FiO2 08/09/17 20:00 97.7 75 18 147/87 98 Room Air 08/09/17 20:00 17 08/09/17 16:00 98.2 78 21 138/83 97 Room Air 08/09/17 16:00 14 08/09/17 12:53 92 20 99 08/09/17 12:00 17 08/09/17 11:45 97.3 08/09/17 11:45 97.3 81 20 135/84 98 Room Air 08/09/17 08:00 16 08/09/17 07:55 98.7 77 20 137/77 98 Room Air 08/09/17 04:00 98.3 98 16 134/77 100 Nasal Cannula 2.0 08/09/17 04:00 18 08/09/17 00:00 19 08/09/17 00:00 97.4 87 18 129/83 100 Nasal Cannula 2.0 Intake and Output 08/09/17 08/10/17 19:00 07:00 Intake Total 920 ml 205 ml Output Total 2583 ml Balance -1663 ml 205 ml Intake Oral 640 ml IV Total 280 ml 205 ml Output Urine Total 2550 ml Drainage Total 33 ml # Voids 1 Laboratory Tests 08/09/17 04:00: White Blood Count 7.7, Red Blood Count 4.32L, Hemoglobin 13.0L, Hematocrit 39.9L , Mean Corpuscular Volume 93, Mean Corpuscular Hemoglobin 30.2, Mean Corpuscular Hemoglobin Concent 32.6, Red Cell Distribution Width 11.5L, Platelet Count 197, Mean Platelet Volume 9.0, Neutrophils (%) (Auto) 75.3H, Lymphocytes (%) (Auto) 16.2L, Monocytes (%) (Auto) 7.4, Eosinophils (%) (Auto) 0.5, Basophils (%) (Auto) 0.6 Height (Feet): 5 Height (Inches): 7.00 Weight (Pounds): 161 Objective General: alert, cooperative, no distress, appears stated age Head: normocephalic, without obvious abnormality, atraumatic Eyes: conjunctivae/corneas clear. PERRL, EOM's intact Throat: lips, mucosa, and tongue normal. MMM Neck: supple, symmetrical, trachea midline, and no JVD Lungs: clear to auscultation bilaterally Heart: regular rate and rhythm, S1, S2 normal, no murmur, click, rub or gallop Abdomen: soft, non-tender, non-distended, bowel sounds normal; no masses or organomegaly Extremities: extremities normal, atraumatic, no cyanosis or edema Pulses: 2+ and symmetric Skin: Dressings c/d/i Neurologic: grossly normal, no focal deficits Danielle Daigle M.D. Aug 09, 2017 23:12
[2017-08-09 23:20] LABS: APPEARANCE,URINE CLEAR; KETONES,URINE NEGATIVE (NEGATIVE); LEUKOCYTE ESTERASE ,URINE NEGATIVE (NEGATIVE); NITRITE,URINE NEGATIVE (NEGATIVE); PH,URINE 8 (4.5-8.0); PROTEIN,URINE NEGATIVE (NEGATIVE); UROBILINOGEN,URINE NORMAL MG/DL (0.0-1.0)
[2017-08-09 23:47] LABS: WBC,URINE 0-2 /HPF (0 - 0)
[2017-08-10] VITALS (12 sets, daily range): BP systolic 108–159; BP diastolic 64–87
[2017-08-10] MEDS: ceFAZolin 1gm in D5W 55ml IVP SCH ×3 (05:44→21:33)
[2017-08-10] MEDS: PCA shift volume MISC SCH ×2 (07:19→19:00)
[2017-08-10] MEDS: Heparin 5000 units/ml inj SUBQ SCH ×2 (09:00→20:37)
[2017-08-10] MEDS: Docusate 100mg cap ORAL SCH ×2 (09:00→21:00)
[2017-08-10] MEDS: D5 1/2NS 1,000 ML IV SCH ×2 (09:01→21:33)
[2017-08-10] MEDS ORDERED: D5 1/2NS 1000ml IV ONE (10:43)
--- NOTE | 2017-08-10 11:25 | Pre-Procedure Note/Attestation ---
Pre-Procedure Note/Attestation Complete Prior to Procedure Planned Procedure: bilateral Procedure Narrative: Left axillary wound and right axillary wound closure Indications for Procedure Pre-Operative Diagnosis: Bilateral groin and left axillary infection Attestation I attest that I discussed the nature of the procedure; its benefits; risks and complications; and alternatives (and the risks and benefits of such alternatives ), prior to the procedure, with the patient (or the patient's legal associate sales representative). I attest that, if there was a reasonable possibility of needing a blood transfusion, the patient (or the patient's legal associate sales representative) was given the [facility] standardized written summary, pursuant to the Garry [place] Blood Safety Act ([place] Health and Safety Code # 1645, as amended). I attest that I re-evaluated the patient just prior to the surgery and that there has been no change in the patient's H&P, except as documented below: AIMEE SILVERIO Aug 10, 2017 11:25
[2017-08-10] MEDS ORDERED: Zolpidem 5mg tab ORAL PRN (11:30)
[2017-08-10] MEDS ORDERED: Rate Change PCA 1 Each MISC PRN ×2 (11:45→14:45)
[2017-08-10] MEDS ORDERED: PCA HYDROmorphone 1mg/ml 30 ML IV PRN (11:45)
[2017-08-10] MEDS ORDERED: PCA Education Pamphlet MISC ONE ×2 (11:45→14:45)
[2017-08-10] MEDS ORDERED: TransDerm Scop 1mg/72HR Patch TDERMAL ONE (13:15)
[2017-08-10] MEDS ORDERED: NeoSporin Gu Irrig 1ml Amp IRRIG ONE (13:15)
[2017-08-10] MEDS ORDERED: Bacitracin 50000 Units Vial ONE (13:15)
[2017-08-10] MEDS ORDERED: Propofol 200mg/20ml IV ONE (13:30)
[2017-08-10] MEDS ORDERED: fentaNYL 100 mcg/2 mL IV ONE (13:30)
[2017-08-10] MEDS ORDERED: Midazolam 2mg/2ml Inj ONE (13:30)
[2017-08-10] MEDS ORDERED: LR 1000ml ONE (13:30)
[2017-08-10] MEDS ORDERED: Neostigmine 1mg/ml 10ml Inj ONE (13:30)
[2017-08-10] MEDS ORDERED: Morphine Sulfate 10mg/ml Inj ONE (13:30)
[2017-08-10] MEDS ORDERED: Zemuron 50mg/5ml Inj IV ONE (13:30)
[2017-08-10] MEDS ORDERED: Ketorolac 30mg Inj ONE (13:30)
[2017-08-10] MEDS ORDERED: NS Irrig 1000ml ONE (13:30)
[2017-08-10] MEDS ORDERED: Glycopyrrolate 0.2mg/ml 1ml Vial ONE (13:30)
[2017-08-10] MEDS ORDERED: Succinylcholine 20mg/ml 10ml vial ONE (13:30)
[2017-08-10] MEDS ORDERED: Lidocaine 1% 10mg/ml/Epi 0.005mg/ml 30ml vial INJ ONE (13:47)
[2017-08-10] MEDS ORDERED: LR 1000ml 1,000 ML IVLG SCH (14:31)
--- NOTE | 2017-08-10 14:31 | Anethesia Preoperative Eval ---
Anesthesia Pre-op PMH/ROS General Date of Evaluation: Aug 10, 2017 Time of Evaluation: 13:20 Anesthesiologist: Jessica ASA Score: ASA 2 Mallampati Score Class I : Soft palate, uvula, fauces, pillars visible Class II: Soft palate, uvula, fauces visible Class III: Soft palate, base of uvula visible Class IV: Only hard plate visible Mallampati Classification: Class II Surgeon: Siobhan Diagnosis: Recurrent HS Surgical Procedure: Revision and closure of L axillary and bilateral groin woun Anesthesia History: none Family History: no anesthesia problems Allergies: Coded Allergies: No Known Allergies (Unverified , 08/07/17) Medications: see eMAR Past Medical History Cardiovascular: Denies: HTN, CAD, [place], valve dz, arrhythmia, other Pulmonary: Denies: asthma, COPD, JOANN, other Gastrointestinal/Genitourinary: Denies: GERD, CRI, ESRD, other Neurologic/Psychiatric: Reports: depression/anxiety, Denies: dementia, CVA, TIA, other Endocrine: Denies: DM, hypothyroidism, steroids, other HEENT: Denies: cataract (L), cataract (R), glaucoma, [place] (L), [place] (R), other Hematology/Immune: Denies: anemia, DVT, bleeding disorder, other Musculoskeletal/Integumentary: Reports: other - recurrent HS PMH Narrative: as above PSxH Narrative: See H&P Anesthesia Pre-op Phys. Exam Physician Exam Last Vital Signs Date Time Temp Pulse Resp B/P (MAP) Pulse Ox O2 Delivery O2 Flow Rate FiO2 08/10/17 08:00 97.7 73 18 141/77 100 Room Air 08/09/17 04:00 2.0 08/08/17 22:00 28 Constitutional: NAD Neurologic: CN 2-12 intact Cardiovascular: RRR, no M/R/G Respiratory: CTA Gastrointestinal: S/NT/ND Airway Exam Mallampati Score: Class II MO: full Neck: flexible ROM: full Teeth: intact Dentures: no upper, no lower Anesthesia Pre-op A/P Labs see chart Risk Assessment & Plan Assessment: ASA 2 Plan: GA with ETT PONV prevention Status Change Before Surgery: No Pre-Antibiotics Drug: Ancef 1gr. Given Within 1 Hr of Incision: Yes Time Given: 14:10 SOILA BABCOCK M.D. Aug 10, 2017 14:31
[2017-08-10] MEDS ORDERED: Naloxone 0.4mg/ml Inj IVP PRN (14:45)
[2017-08-10] MEDS ORDERED: DiphenhydrAMINE 50mg/ml Inj IVP PRN ×2 (14:45)
[2017-08-10] MEDS ORDERED: LORazepam 1mg tab ORAL PRN (14:45)
[2017-08-10] MEDS ORDERED: Metoclopramide 10mg/2ml Inj IVP PRN (14:45)
[2017-08-10] MEDS ORDERED: Midazolam 2mg/2ml Inj IVP PRN (14:45)
[2017-08-10] MEDS ORDERED: Hydromorphone 0.5mg/0.5ml inj IVP PRN (14:45)
[2017-08-10] MEDS ORDERED: Ketorolac 30mg Inj IV PRN (14:45)
--- NOTE | 2017-08-10 15:25 | Operative Note - PDOC ---
Operative Note Operative Note Pre-op Diagnosis: Right buttock and left axillary wound Procedure: Closure of wounds Post-op Diagnosis: same as pre-op Surgeon: Siobhan Investor: Mirna Anesthesia: general Specimen: yes Complications: none Condition: stable Estimated Blood Loss: minimal Drains: ALIRIO Implant(s) used?: No AIMEE SILVERIO Aug 10, 2017 15:25
[2017-08-10] MEDS: PCA HYDROmorphone 1mg/ml 30 ML IV PRN ×3 (16:05→16:53)
[2017-08-10] MEDS: Meperidine 25mg/0.5ml Inj (FOR RIGORS ONLY) IV PRN ×3 (16:14→16:53)
--- NOTE | 2017-08-10 18:11 | 48 Hour Post Anesthesia Eval ---
Post Anesthesia Evaluation Procedure: Bilateral groin and L axillary wounds closure Date of Evaluation: Aug 10, 2017 Time of Evaluation: 18:10 Blood Pressure Systolic: 136 0: 72 Pulse Rate: 84 Respiratory Rate: 20 Temperature (Fahrenheit): 97.6 O2 Sat by Pulse Oximetry: 98 Airway: patent Nausea: No Vomiting: No Pain Intensity: 3 Hydration Status: adequate Cardiopulmonary Status: stable Mental Status/LOC: patient returned to baseline Follow-up Care/Observations: n/a Post-Anesthesia Complications: none Follow-up care needed: N/A SOILA BABCOCK M.D. Aug 10, 2017 18:11
--- NOTE | 2017-08-10 18:15 | Immediate Post-Op Evaluation ---
Immediate Post-Op Evalulation Immediate Post-Op Evalulation Procedure: Bilateral groin and L axillary wounds closure Date of Evaluation: Aug 10, 2017 Time of Evaluation: 15:20 IV Fluids: 800 Blood Products: none Estimated Blood Loss: <50 Urinary Output: 150 Blood Pressure Systolic: 142 Blood Pressure Diastolic: 56 Pulse Rate: 78 Respiratory Rate: 20 O2 Sat by Pulse Oximetry: 99 Temperature (Fahrenheit): 97.7 Pain Score (1-10): 2 Nausea: No Vomiting: No Complications none Patient Status: reacts, patent, extubated, none Hydration Status: adequate SOILA BABCOCK M.D. Aug 10, 2017 18:15
[2017-08-10] MEDS ORDERED: PCA shift volume MISC SCH (19:00)
--- NOTE | 2017-08-10 20:31 | General Progress Note ---
Assessment/Plan Problem List: (1) Abscess ICD Codes: L02.91 - Cutaneous abscess, unspecified SNOMED: 662928329 (2) Hidradenitis suppurativa ICD Codes: L73.2 - Hidradenitis suppurativa SNOMED: 75118196 (3) Postoperative urinary retention ICD Codes: N99.89 - Other postprocedural complications and disorders of genitourinary system; R33.8 - Other retention of urine SNOMED: 865341944 (4) Postoperative nausea ICD Codes: R11.0 - Nausea; Z98.890 - Other specified postprocedural states SNOMED: 16993632 Status: stable Assessment/Plan Plastic surgery consulted s/p s/p debridement of bilateral groin and left axilla with flap elevation on s/p closure of wounds on 08/10/17 Plan for OR tomorrow Encourage mobilization/ambulation Encourage incentive spirometry to optimize pulmonary hygiene DVT/GI prophylaxis as appropriate--SCDs, HSQ F/u blood cultures x 2 IV ancef Pain control, bowel regimen Nausea control Supportive care SCDs and HSQ for DVT ppx A total of 31min of extra time was spent in addition to normal encounter time for care/coordination and counseling. D/w pt/family, RN, surgery regarding mgmt and dispo. Discussed w/ RN re ambulation Subjective Date patient seen: Aug 10, 2017 Time patient seen: 16:00 Constitutional: Reports: no symptoms HEENT: Reports: no symptoms Cardiovascular: Reports: no symptoms Respiratory: Reports: no symptoms Gastrointestinal/Abdominal: Reports: nausea Genitourinary: Reports: no symptoms Neurologic/Psychiatric: Reports: no symptoms Endocrine: Reports: no symptoms Hematologic/Lymphatic: Reports: no symptoms Allergies: Coded Allergies: No Known Allergies (Unverified , 08/07/17) All Systems: reviewed and negative except above Subjective No acute o/n events s/p debridement of bilateral groin and left axilla with flap elevation POD#2 s/p closure of wounds today Pain controlled. Denies f/c, emesis, chest pain, SOB. Having some postop nausea , but no emesis Objective Last 24 Hour Vital Signs Date Time Temp Pulse Resp B/P (MAP) Pulse Ox O2 Delivery O2 Flow Rate FiO2 08/10/17 20:13 98 Room Air 08/10/17 20:13 Room Air 08/10/17 20:00 16 08/10/17 18:15 78 20 99 08/10/17 18:11 84 20 98 08/10/17 17:35 18 08/10/17 17:05 18 08/10/17 16:40 97.0 69 20 159/87 100 Nasal Cannula 2.0 08/10/17 16:35 15 08/10/17 16:30 98.2 79 16 147/84 100 Nasal Cannula 3.0 08/10/17 16:20 16 08/10/17 16:14 61 16 159/80 100 Nasal Cannula 3.0 08/10/17 16:05 62 17 150/85 100 Nasal Cannula 3.0 08/10/17 16:05 15 08/10/17 15:55 63 18 154/79 100 Nasal Cannula 3.0 08/10/17 15:48 66 15 156/73 100 Simple Mask 6.0 08/10/17 15:43 70 11 150/82 100 Simple Mask 6.0 08/10/17 15:38 98.1 90 18 140/74 100 Simple Mask 6.0 08/10/17 08:00 97.7 73 18 141/77 100 Room Air 08/10/17 08:00 16 08/10/17 04:00 18 08/10/17 04:00 97.7 70 18 138/64 98 Room Air 08/10/17 00:00 98.3 65 18 150/75 99 Room Air 08/10/17 00:00 18 Intake and Output 08/10/17 08/11/17 19:00 07:00 Intake Total 1460 ml Output Total 1723 ml Balance -263 ml Intake Oral 360 ml IV Total 1100 ml Output Urine Total 1650 ml Drainage Total 33 ml Estimated Blood Loss 40 ml Laboratory Tests 08/09/17 22:00: Urine Color Pale yellow, Urine Appearance Clear, Urine pH 8, Urine Specific [place] 1.015, Urine Protein Negative, Urine Glucose (UA) Negative, Urine Ketones Negative, Urine Occult Blood 2+H, Urine Nitrite Negative, Urine Bilirubin Negative, Urine Urobilinogen Normal, Urine Leukocyte Esterase Negative , Urine RBC 10-15H, Urine WBC 0-2, Urine Squamous Epithelial Cells None, Urine Bacteria None Height (Feet): 5 Height (Inches): 6.00 Weight (Pounds): 161 Objective General: alert, cooperative, no distress, appears stated age Head: normocephalic, without obvious abnormality, atraumatic Eyes: conjunctivae/corneas clear. PERRL, EOM's intact Throat: lips, mucosa, and tongue normal. MMM Neck: supple, symmetrical, trachea midline, and no JVD Lungs: clear to auscultation bilaterally Heart: regular rate and rhythm, S1, S2 normal, no murmur, click, rub or gallop Abdomen: soft, non-tender, non-distended, bowel sounds normal; no masses or organomegaly Extremities: extremities normal, atraumatic, no cyanosis or edema Pulses: 2+ and symmetric Skin: Dressings c/d/i Neurologic: grossly normal, no focal deficits Danielle Daigle M.D. Aug 10, 2017 20:31
--- NOTE | 2017-08-10 23:30 | Operative Note - Dictated ---
DATE OF OPERATION: 08/10/2017 PREOPERATIVE DIAGNOSES: 1. Open left axillary wound. 2. Open right buttock wound. POSTOPERATIVE DIAGNOSES: 1. Open left axillary wound. 2. Open right buttock wound. PROCEDURE: 1. Preparation of left axillary wound for flap closure. 2. Reelevation of anterior chest wall flap for closure of left axillary wound. 3. Reelevation of the thoracodorsal artery flap for closure of left axillary wound. 4. Preparation of right buttock wound for flap closure. 5. Elevation of a lateral gluteal fasciocutaneous flap for closure of right buttock wound. SURGEON: Rhea Mccann M.D. MOLECULAR GENETIC PATHOLOGIST: Amarilis Bradley M.D. ANESTHESIA: General. COMPLICATIONS: None. Drains: Included a size 15 ALIRIO in the left axilla and a [place] drain in the right buttock. EBL: Minimal. DISPOSITION: Stable to the recovery room. Indications For Surgery: This is a 27-year-old, male, who is now 48 hours postoperative from reconstruction of his bilateral groin wounds as well as a flap elevation of his left axillary wound and debridement of his right buttock wound. The patient had local wound care to his buttock and axillary wound and is now ready for definitive closure. He understands the risks and benefits of surgery and agrees to proceed. The patient brought to the operating room and laid in the lithotomy position on the operating table and bilateral groins and left axilla were prepped and draped in a sterile and usual fashion. We first began on the left axilla where the patient had a previous flap elevation of the thoracodorsal flap as well as a chest wall flap. The wound was debrided of its nonviable tissue. Hemostasis was achieved and once this was done, the wound was copiously irrigated with pulse lavage. We noted that we had to re-advance the anterior chest wall flap for more tension-free repair of the wound and then the thoracodorsal artery flap that had been previously elevated was then reelevated by releasing some of its proximal attachments to allow for good transposition of the flap into the wound. Once this was all done, the flaps were then inset using #0 and 2-0 Vicryl sutures. The donor site was also closed by reapproximating the posterior skin flap to the anterior skin flap also done with #0 and 2-0 Vicryl sutures and the wound was closed over 15 ALIRIO. The skin was then closed with 2-[address]. Dressings were applied. We then turned our attention to the right buttock wound. The wound was debrided of its nonviable tissue. Copious lavage was done with the pulse lavage irrigation. A lateral lead based gluteal fasciocutaneous flap was elevated by proximal distal incisions at a deeper level to fully mobilize the flap. This flap was based off of perforators of the inferior gluteal artery. With the flap fully mobilized, we were then unable to close the wound using #0 and 2-[address] and rd were used to close the skin. This wound was closed with a over a [place] drain. The patient tolerated the procedure well. There were no complications. Rhea Mccann M.D. DR: LEWIS JOB#: [id number] CC:
[2017-08-11] VITALS: BP 135/69
[2017-08-11 04:00] VITALS: BP 130/78
[2017-08-11] MEDS: ceFAZolin 1gm in D5W 55ml IVP SCH ×3 (06:01→21:10)
[2017-08-11 06:52] LABS: BASOPHILS % (AUTO) 0.7 % (0.0-2.0); EOSINOPHILS % (AUTO) 3.3 % (0.0-3.0); LYMPHOCYTES % (AUTO) 19.8 % (20.0-45.0); MEAN CORPUSCULAR HEMOGLOBIN 31.1 PG (27.0-31.0); MEAN CORPUSCULAR HGB CONC 33.3 G/DL (32.0-36.0); MEAN CORPUSCULAR VOLUME 93 FL (80-99); MEAN PLATELET VOLUME 8.8 FL (6.5-10.1); MONOCYTES % (AUTO) 8.4 % (1.0-10.0); NEUTROPHILS % (AUTO) 67.8 % (45.0-75.0); PLATELET COUNT 181 K/UL (150-450); RED CELL DISTRIBUTION WIDTH 11.6 % (11.6-14.8); WHITE BLOOD COUNT 6.4 K/UL (4.8-10.8)
[2017-08-11 06:59] LABS: ANION GAP 7 (5-15); CALCIUM 8.5 mg/dL (8.6-10.2); CARBON DIOXIDE 28 mEQ/L (20-30); CHLORIDE 104 mEQ/L (98-107); GLOMERULAR FILTRATION RATE > 60 mL/min (>60); HEMOLYSIS 4; POTASSIUM 4.3 mEQ/L (3.4-4.9); SODIUM 139 mEQ/L (135-145)
[2017-08-11] MEDS: PCA shift volume MISC SCH ×2 (07:00→19:28)
--- NOTE | 2017-08-11 07:50 | General Progress Note ---
Assessment/Plan Problem List: (1) Abscess ICD Codes: L02.91 - Cutaneous abscess, unspecified SNOMED: 211372584 (2) Hidradenitis suppurativa ICD Codes: L73.2 - Hidradenitis suppurativa SNOMED: 10919465 (3) Postoperative urinary retention ICD Codes: N99.89 - Other postprocedural complications and disorders of genitourinary system; R33.8 - Other retention of urine SNOMED: 632769970 (4) Postoperative nausea ICD Codes: R11.0 - Nausea; Z98.890 - Other specified postprocedural states SNOMED: 23004064 Status: stable Assessment/Plan Plastic surgery consulted s/p s/p debridement of bilateral groin and left axilla with flap elevation on s/p closure of wounds on 08/10/17 Encourage mobilization/ambulation Encourage incentive spirometry to optimize pulmonary hygiene DVT/GI prophylaxis as appropriate--SCDs, HSQ F/u blood cultures x 2 IV ancef Pain control, bowel regimen Nausea control Supportive care SCDs and HSQ for DVT ppx A total of 31min of extra time was spent in addition to normal encounter time for care/coordination and counseling. D/w pt/family, RN, surgery regarding mgmt and dispo. Discussed w/ RN re ambulation Subjective Date patient seen: Aug 11, 2017 Time patient seen: 07:50 ROS Limited/Unobtainable: No Constitutional: Reports: no symptoms HEENT: Reports: no symptoms Cardiovascular: Reports: no symptoms Respiratory: Reports: no symptoms Gastrointestinal/Abdominal: Reports: no symptoms Genitourinary: Reports: no symptoms Neurologic/Psychiatric: Reports: no symptoms Endocrine: Reports: no symptoms Hematologic/Lymphatic: Reports: no symptoms Allergies: Coded Allergies: No Known Allergies (Unverified , 08/07/17) All Systems: reviewed and negative except above Subjective No acute o/n events s/p debridement of bilateral groin and left axilla with flap elevation POD#3 s/p closure of wounds yesterday POD#1 Pain controlled. Denies f/c, n/v, d/c chest pain, SOB. Objective Last 24 Hour Vital Signs Date Time Temp Pulse Resp B/P (MAP) Pulse Ox O2 Delivery O2 Flow Rate FiO2 08/11/17 04:00 98.3 83 18 130/78 99 Room Air 9/23/17 04:00 17 08/11/17 00:00 17 08/11/17 00:00 97.3 62 18 135/69 100 Room Air 08/10/17 20:13 98 Room Air 08/10/17 20:13 Room Air 08/10/17 20:00 16 08/10/17 20:00 97.5 80 18 130/85 100 Nasal Cannula 2.0 08/10/17 18:15 78 20 99 08/10/17 18:11 84 20 98 08/10/17 17:35 18 08/10/17 17:05 18 08/10/17 16:40 97.0 69 20 159/87 100 Nasal Cannula 2.0 08/10/17 16:35 15 08/10/17 16:30 98.2 79 16 147/84 100 Nasal Cannula 3.0 08/10/17 16:20 16 08/10/17 16:14 61 16 159/80 100 Nasal Cannula 3.0 08/10/17 16:05 62 17 150/85 100 Nasal Cannula 3.0 08/10/17 16:05 15 08/10/17 15:55 63 18 154/79 100 Nasal Cannula 3.0 08/10/17 15:48 66 15 156/73 100 Simple Mask 6.0 08/10/17 15:43 70 11 150/82 100 Simple Mask 6.0 08/10/17 15:38 98.1 90 18 140/74 100 Simple Mask 6.0 08/10/17 08:00 97.7 73 18 141/77 100 Room Air 08/10/17 08:00 16 Laboratory Tests 08/11/17 04:30: Sodium Level 139, Potassium Level 4.3, Chloride Level 104, Carbon Dioxide Level 28, Anion Gap 7, Blood Urea Nitrogen 11, Creatinine 1.0, Estimat Glomerular Filtration Rate > 60, Glucose Level 103, Calcium Level 8.5L 08/11/17 04:50: White Blood Count 6.4, Red Blood Count 3.90L, Hemoglobin 12.1L, Hematocrit 36.4L , Mean Corpuscular Volume 93, Mean Corpuscular Hemoglobin 31.1H, Mean Corpuscular Hemoglobin Concent 33.3, Red Cell Distribution Width 11.6, Platelet Count 181, Mean Platelet Volume 8.8, Neutrophils (%) (Auto) 67.8, Lymphocytes (% ) (Auto) 19.8L, Monocytes (%) (Auto) 8.4, Eosinophils (%) (Auto) 3.3H, Basophils (%) (Auto) 0.7 Height (Feet): 5 Height (Inches): 6.00 Weight (Pounds): 161 Objective General: alert, cooperative, no distress, appears stated age Head: normocephalic, without obvious abnormality, atraumatic Eyes: conjunctivae/corneas clear. PERRL, EOM's intact Throat: lips, mucosa, and tongue normal. MMM Neck: supple, symmetrical, trachea midline, and no JVD Lungs: clear to auscultation bilaterally Heart: regular rate and rhythm, S1, S2 normal, no murmur, click, rub or gallop Abdomen: soft, non-tender, non-distended, bowel sounds normal; no masses or organomegaly Extremities: extremities normal, atraumatic, no cyanosis or edema Pulses: 2+ and symmetric Skin: Dressings c/d/i Neurologic: grossly normal, no focal deficits Danielle Daigle M.D. Aug 11, 2017 07:50
[2017-08-11] MEDS: Docusate 100mg cap ORAL SCH ×2 (09:12→21:10)
[2017-08-11] MEDS: Heparin 5000 units/ml inj SUBQ SCH ×2 (09:16→21:11)
[2017-08-11] MEDS: D5 1/2NS 1,000 ML IV SCH (09:25)
--- NOTE | 2017-08-11 11:19 | General Progress Note ---
Progress Note Progress Note Pt seen and examined. Doing well and pain well controlled. Will ambulate today. 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 MD NUSRAT Drake AMIR Aug 11, 2017 11:19
[2017-08-11 12:00] VITALS: BP 139/76
[2017-08-11 16:00] VITALS: BP 132/82
[2017-08-11] MEDS: PCA HYDROmorphone 1mg/ml 30 ML IV PRN (16:05)
[2017-08-11] MEDS ORDERED: Tubing IV Secondary IV ONE (17:42)
[2017-08-11] MEDS ORDERED: D5 1/2NS 1000ml IV ONE (17:42)
[2017-08-11 20:00] VITALS: BP 130/77
[2017-08-12] VITALS (7 sets, daily range): BP systolic 120–145; BP diastolic 62–90
[2017-08-12] MEDS: D5 1/2NS 1,000 ML IV SCH ×2 (00:07→14:30)
[2017-08-12] MEDS: ceFAZolin 1gm in D5W 55ml IVP SCH ×3 (05:29→22:01)
[2017-08-12] MEDS: PCA shift volume MISC SCH (07:00)
[2017-08-12] MEDS: Heparin 5000 units/ml inj SUBQ SCH ×2 (10:11→21:03)
[2017-08-12] MEDS: Docusate 100mg cap ORAL SCH ×2 (10:11→20:59)
--- NOTE | 2017-08-12 11:56 | General Progress Note ---
Assessment/Plan Problem List: (1) Abscess ICD Codes: L02.91 - Cutaneous abscess, unspecified SNOMED: 827802784 (2) Hidradenitis suppurativa ICD Codes: L73.2 - Hidradenitis suppurativa SNOMED: 07274575 (3) Postoperative urinary retention ICD Codes: N99.89 - Other postprocedural complications and disorders of genitourinary system; R33.8 - Other retention of urine SNOMED: 466043342 (4) Postoperative nausea ICD Codes: R11.0 - Nausea; Z98.890 - Other specified postprocedural states SNOMED: 12699361 Status: stable Assessment/Plan Plastic surgery consulted s/p s/p debridement of bilateral groin and left axilla with flap elevation on s/p closure of wounds on 08/10/17 Encourage mobilization/ambulation Encourage incentive spirometry to optimize pulmonary hygiene DVT/GI prophylaxis as appropriate--SCDs, HSQ F/u blood cultures x 2 IV ancef Pain control, bowel regimen Nausea control Supportive care SCDs and HSQ for DVT ppx D/c gaming today A total of 31min of extra time was spent in addition to normal encounter time for care/coordination and counseling. D/w pt/family, RN, surgery regarding mgmt and dispo. Discussed w/ RN re ambulation Subjective Date patient seen: Aug 12, 2017 Time patient seen: 11:54 ROS Limited/Unobtainable: No Constitutional: Reports: no symptoms HEENT: Reports: no symptoms Cardiovascular: Reports: no symptoms Respiratory: Reports: no symptoms Gastrointestinal/Abdominal: Reports: no symptoms Genitourinary: Reports: no symptoms Neurologic/Psychiatric: Reports: no symptoms Endocrine: Reports: no symptoms Hematologic/Lymphatic: Reports: no symptoms Allergies: Coded Allergies: No Known Allergies (Unverified , 08/07/17) All Systems: reviewed and negative except above Subjective No acute o/n events s/p debridement of bilateral groin and left axilla with flap elevation POD#4 s/p closure of wounds yesterday POD#2 Pain controlled. Denies f/c, n/v, d/c chest pain, SOB. Ambulating Objective Last 24 Hour Vital Signs Date Time Temp Pulse Resp B/P (MAP) Pulse Ox O2 Delivery O2 Flow Rate FiO2 08/12/17 08:00 97.7 81 20 144/90 98 Room Air 08/12/17 08:00 20 08/12/17 04:00 97.4 72 20 126/70 97 Room Air 08/12/17 04:00 17 08/12/17 00:00 98.0 65 20 120/62 97 Room Air 08/12/17 00:00 16 08/11/17 22:05 Room Air 08/11/17 22:05 99 Room Air 08/11/17 20:00 97.9 83 20 130/77 Room Air 08/11/17 20:00 17 08/11/17 16:00 97.6 85 18 132/82 99 Room Air 08/11/17 16:00 18 08/11/17 12:00 98.2 70 18 139/76 100 Room Air 08/11/17 12:00 18 Intake and Output 08/12/17 08/13/17 19:00 07:00 Intake Total 420 ml Balance 420 ml Intake Oral 120 ml IV Total 300 ml Height (Feet): 5 Height (Inches): 6.00 Weight (Pounds): 161 Objective General: alert, cooperative, no distress, appears stated age Head: normocephalic, without obvious abnormality, atraumatic Eyes: conjunctivae/corneas clear. PERRL, EOM's intact Throat: lips, mucosa, and tongue normal. MMM Neck: supple, symmetrical, trachea midline, and no JVD Lungs: clear to auscultation bilaterally Heart: regular rate and rhythm, S1, S2 normal, no murmur, click, rub or gallop Abdomen: soft, non-tender, non-distended, bowel sounds normal; no masses or organomegaly Extremities: extremities normal, atraumatic, no cyanosis or edema Pulses: 2+ and symmetric Skin: Dressings c/d/i Neurologic: grossly normal, no focal deficits Danielle Daigle M.D. Aug 12, 2017 11:55
[2017-08-12] MEDS ORDERED: Naloxone 0.4mg/ml Inj IVP PRN (11:58)
[2017-08-12] MEDS ORDERED: DiphenhydrAMINE 50mg/ml Inj IVP PRN (12:00)
[2017-08-12] MEDS ORDERED: Rate Change PCA 1 Each MISC PRN (12:00)
[2017-08-12] MEDS ORDERED: LORazepam 1mg tab ORAL PRN (12:00)
[2017-08-12] MEDS ORDERED: PCA HYDROmorphone 1mg/ml 30 ML IV PRN (14:45)
[2017-08-12] MEDS ORDERED: Norco 10mg/325mg tab ORAL PRN (15:15)
[2017-08-12] MEDS ORDERED: HYDROmorphone 1mg/ml Carpuject IVP PRN (15:15)
[2017-08-12] MEDS ORDERED: PCA shift volume MISC SCH (19:00)
[2017-08-13] MEDS: D5 1/2NS 1,000 ML IV SCH ×2 (02:45→04:55)
[2017-08-13 04:00] VITALS: BP 110/67
[2017-08-13] MEDS: ceFAZolin 1gm in D5W 55ml IVP SCH ×3 (05:54→21:09)
[2017-08-13 08:00] VITALS: BP 127/76
[2017-08-13] MEDS: Milk of Magnesia 30ml Ud ORAL PRN (08:46)
[2017-08-13] MEDS: Docusate 100mg cap ORAL SCH ×2 (08:46→19:51)
[2017-08-13] MEDS: Heparin 5000 units/ml inj SUBQ SCH ×2 (08:49→19:52)
--- NOTE | 2017-08-13 09:47 | General Progress Note ---
Progress Note Progress Note Pt seen and examined. POD# 3 from flap closure of axillary wound. Flap looks great and groin and buttock wounds look very healthy. Continue IV abx and pain meds. Will keep drains in for now. AIMEE Ford MD Aug 13, 2017 09:47
[2017-08-13 12:00] VITALS: BP 115/72
--- NOTE | 2017-08-13 14:32 | General Progress Note ---
Assessment/Plan Problem List: (1) Abscess ICD Codes: L02.91 - Cutaneous abscess, unspecified SNOMED: 130799690 (2) Hidradenitis suppurativa ICD Codes: L73.2 - Hidradenitis suppurativa SNOMED: 33915628 (3) Postoperative urinary retention ICD Codes: N99.89 - Other postprocedural complications and disorders of genitourinary system; R33.8 - Other retention of urine SNOMED: 968302789 (4) Postoperative nausea ICD Codes: R11.0 - Nausea; Z98.890 - Other specified postprocedural states SNOMED: 19135598 Status: stable Assessment/Plan Plastic surgery consulted s/p s/p debridement of bilateral groin and left axilla with flap elevation on s/p closure of wounds on 08/10/17 Encourage mobilization/ambulation Encourage incentive spirometry to optimize pulmonary hygiene DVT/GI prophylaxis as appropriate--SCDs, HSQ F/u blood cultures x 2 IV ancef Pain control, bowel regimen Nausea control Supportive care SCDs and HSQ for DVT ppx s/p gaming removal 08/12 A total of 31min of extra time was spent in addition to normal encounter time for care/coordination and counseling. D/w pt/family, RN, surgery regarding mgmt and dispo. Discussed w/ Dr. Siobhan goode wound care, d/c plan for Subjective Date patient seen: Aug 13, 2017 Time patient seen: 14:31 ROS Limited/Unobtainable: No Constitutional: Reports: no symptoms HEENT: Reports: no symptoms Cardiovascular: Reports: no symptoms Respiratory: Reports: no symptoms Gastrointestinal/Abdominal: Reports: no symptoms Genitourinary: Reports: no symptoms Neurologic/Psychiatric: Reports: no symptoms Endocrine: Reports: no symptoms Hematologic/Lymphatic: Reports: no symptoms Allergies: Coded Allergies: No Known Allergies (Unverified , 08/07/17) Subjective No acute o/n events s/p debridement of bilateral groin and left axilla with flap elevation POD#5 s/p closure of wounds yesterday POD#3 Gaming removed yesterday and voiding on own now Pain controlled. Denies f/c, n/v, d/c chest pain, SOB. Ambulating Objective Last 24 Hour Vital Signs Date Time Temp Pulse Resp B/P (MAP) Pulse Ox O2 Delivery O2 Flow Rate FiO2 08/13/17 12:00 97.9 72 18 115/72 97 Room Air 08/13/17 08:00 96.3 68 19 127/76 98 Room Air 08/13/17 07:35 99 Room Air 08/13/17 07:35 Room Air 08/13/17 04:00 97.1 61 18 110/67 99 Room Air 08/12/17 23:51 97.9 69 18 134/71 99 Room Air 08/12/17 20:00 97.8 75 18 139/75 96 Room Air 08/12/17 19:20 97 Room Air 08/12/17 19:20 Room Air 08/12/17 16:00 98.2 71 18 128/76 97 Room Air 08/12/17 16:00 18 Intake and Output 08/13/17 08/14/17 19:00 07:00 Intake Total 480 ml Balance 480 ml Intake Oral 480 ml # Voids 2 Height (Feet): 5 Height (Inches): 6.00 Weight (Pounds): 161 Objective General: alert, cooperative, no distress, appears stated age Head: normocephalic, without obvious abnormality, atraumatic Eyes: conjunctivae/corneas clear. PERRL, EOM's intact Throat: lips, mucosa, and tongue normal. MMM Neck: supple, symmetrical, trachea midline, and no JVD Lungs: clear to auscultation bilaterally Heart: regular rate and rhythm, S1, S2 normal, no murmur, click, rub or gallop Abdomen: soft, non-tender, non-distended, bowel sounds normal; no masses or organomegaly Extremities: extremities normal, atraumatic, no cyanosis or edema Pulses: 2+ and symmetric Skin: Dressings c/d/i Neurologic: grossly normal, no focal deficits Danielle Daigle M.D. Aug 13, 2017 14:32
[2017-08-13 16:00] VITALS: BP 105/70
[2017-08-13] MEDS ORDERED: D5 1/2NS 1000ml IV ONE (16:46)
[2017-08-13 20:00] VITALS: BP 126/78
[2017-08-14] VITALS: BP 111/67
[2017-08-14 04:00] VITALS: BP 108/69
[2017-08-14] MEDS: ceFAZolin 1gm in D5W 55ml IVP SCH ×3 (05:55→21:16)
[2017-08-14 07:27] LABS: BASOPHILS % (AUTO) 0.7 % (0.0-2.0); EOSINOPHILS % (AUTO) 4.1 % (0.0-3.0); LYMPHOCYTES % (AUTO) 24.7 % (20.0-45.0); MEAN CORPUSCULAR HEMOGLOBIN 30.3 PG (27.0-31.0); MEAN CORPUSCULAR HGB CONC 32.8 G/DL (32.0-36.0); MEAN CORPUSCULAR VOLUME 92 FL (80-99); MEAN PLATELET VOLUME 8.3 FL (6.5-10.1); MONOCYTES % (AUTO) 8.1 % (1.0-10.0); NEUTROPHILS % (AUTO) 62.4 % (45.0-75.0); PLATELET COUNT 225 K/UL (150-450); RED BLOOD COUNT 4.32 M/UL (4.70-6.10); RED CELL DISTRIBUTION WIDTH 11.4 % (11.6-14.8); WHITE BLOOD COUNT 6.1 K/UL (4.8-10.8)
[2017-08-14 08:00] VITALS: BP 117/79
[2017-08-14] MEDS: Docusate 100mg cap ORAL SCH ×2 (08:33→20:27)
[2017-08-14] MEDS: Heparin 5000 units/ml inj SUBQ SCH ×2 (08:36→20:30)
[2017-08-14 11:32] VITALS: BP 117/80
[2017-08-14 15:56] VITALS: BP 117/70
--- NOTE | 2017-08-14 16:56 | General Progress Note ---
Assessment/Plan Problem List: (1) Abscess ICD Codes: L02.91 - Cutaneous abscess, unspecified SNOMED: 662891369 (2) Hidradenitis suppurativa ICD Codes: L73.2 - Hidradenitis suppurativa SNOMED: 80694802 (3) Postoperative urinary retention ICD Codes: N99.89 - Other postprocedural complications and disorders of genitourinary system; R33.8 - Other retention of urine SNOMED: 086691911 (4) Postoperative nausea ICD Codes: R11.0 - Nausea; Z98.890 - Other specified postprocedural states SNOMED: 36439589 Status: stable Assessment/Plan Plastic surgery consulted s/p s/p debridement of bilateral groin and left axilla with flap elevation on s/p closure of wounds on 08/10/17 Encourage mobilization/ambulation Encourage incentive spirometry to optimize pulmonary hygiene DVT/GI prophylaxis as appropriate--SCDs, HSQ F/u blood cultures x 2 IV ancef Pain control, bowel regimen Nausea control Supportive care SCDs and HSQ for DVT ppx s/p gaming removal 08/12 Check BMP/LFTs/Mg/Phos in AM A total of 31min of extra time was spent in addition to normal encounter time for care/coordination and counseling. D/w pt/family, RN, surgery regarding mgmt and dispo. Discussed w/ Dr. Siobhan goode wound care, d/c plan for Subjective Date patient seen: Aug 14, 2017 Time patient seen: 16:56 ROS Limited/Unobtainable: No Constitutional: Reports: no symptoms HEENT: Reports: no symptoms Cardiovascular: Reports: no symptoms Respiratory: Reports: no symptoms Gastrointestinal/Abdominal: Reports: no symptoms Genitourinary: Reports: no symptoms Neurologic/Psychiatric: Reports: no symptoms Endocrine: Reports: no symptoms Hematologic/Lymphatic: Reports: no symptoms Allergies: Coded Allergies: No Known Allergies (Unverified , 08/07/17) All Systems: reviewed and negative except above Subjective No acute o/n events s/p debridement of bilateral groin and left axilla with flap elevation POD#6 s/p closure of wounds yesterday POD#4 C/o intermittent heaviness on top of head and fatigue Pain controlled. Denies f/c, n/v, d/c chest pain, SOB. Ambulating Objective Last 24 Hour Vital Signs Date Time Temp Pulse Resp B/P (MAP) Pulse Ox O2 Delivery O2 Flow Rate FiO2 08/14/17 15:56 98.1 79 18 117/70 97 Room Air 08/14/17 11:32 97.9 71 18 117/80 98 Room Air 08/14/17 08:00 98.4 101 20 117/79 99 Room Air 08/14/17 07:26 Room Air 08/14/17 07:26 99 Room Air 08/14/17 04:00 98.4 77 17 108/69 97 Room Air 08/14/17 00:00 97.5 68 18 111/67 97 Room Air 08/13/17 20:00 97.9 80 17 126/78 98 Room Air Intake and Output 08/14/17 08/15/17 19:00 07:00 Intake Total 500 ml Balance 500 ml Intake Oral 500 ml # Voids 2 Laboratory Tests 08/14/17 06:42: White Blood Count 6.1, Red Blood Count 4.32L, Hemoglobin 13.1L, Hematocrit 39.9L , Mean Corpuscular Volume 92, Mean Corpuscular Hemoglobin 30.3, Mean Corpuscular Hemoglobin Concent 32.8, Red Cell Distribution Width 11.4L, Platelet Count 225, Mean Platelet Volume 8.3, Neutrophils (%) (Auto) 62.4, Lymphocytes (%) (Auto) 24.7, Monocytes (%) (Auto) 8.1, Eosinophils (%) (Auto) 4.1H, Basophils (%) (Auto) 0.7 Height (Feet): 5 Height (Inches): 6.00 Weight (Pounds): 161 Objective General: alert, cooperative, no distress, appears stated age Head: normocephalic, without obvious abnormality, atraumatic Eyes: conjunctivae/corneas clear. PERRL, EOM's intact Throat: lips, mucosa, and tongue normal. MMM Neck: supple, symmetrical, trachea midline, and no JVD Lungs: clear to auscultation bilaterally Heart: regular rate and rhythm, S1, S2 normal, no murmur, click, rub or gallop Abdomen: soft, non-tender, non-distended, bowel sounds normal; no masses or organomegaly Extremities: extremities normal, atraumatic, no cyanosis or edema Pulses: 2+ and symmetric Skin: Dressings c/d/i Neurologic: grossly normal, no focal deficits Danielle Daigle M.D. Aug 14, 2017 16:56
[2017-08-14 20:00] VITALS: BP 117/69
[2017-08-15 04:00] VITALS: BP 126/81
[2017-08-15 06:37] LABS: ALANINE AMINOTRANSFERASE 16 U/L (3-41); ANION GAP 13 (5-15); ASPARTATE AMINO TRANSFERASE 20 U/L (5-40); BILIRUBIN,DIRECT 0.1 mg/dL (0.1-0.3); CALCIUM 9.8 mg/dL (8.6-10.2); CARBON DIOXIDE 25 mEQ/L (20-30); CHLORIDE 99 mEQ/L (98-107); GLOMERULAR FILTRATION RATE > 60 mL/min (>60); HEMOLYSIS 2; MAGNESIUM 2.3 mg/dL (1.7-2.5); PHOSPHORUS 4.2 mg/dL (2.5-4.8); POTASSIUM 4.2 mEQ/L (3.4-4.9); SODIUM 137 mEQ/L (135-145); TOTAL PROTEIN 7.5 g/dL (6.6-8.7)
[2017-08-15] MEDS: ceFAZolin 1gm in D5W 55ml IVP SCH ×3 (06:50→21:26)
[2017-08-15] MEDS: Docusate 100mg cap ORAL SCH ×2 (08:21→21:26)
[2017-08-15 08:27] VITALS: BP 120/83
[2017-08-15] MEDS: Heparin 5000 units/ml inj SUBQ SCH ×2 (08:27→21:28)
[2017-08-15 12:00] VITALS: BP 139/90
--- NOTE | 2017-08-15 14:00 | General Progress Note ---
Assessment/Plan Problem List: (1) Abscess ICD Codes: L02.91 - Cutaneous abscess, unspecified SNOMED: 793544774 (2) Hidradenitis suppurativa ICD Codes: L73.2 - Hidradenitis suppurativa SNOMED: 88119389 (3) Postoperative urinary retention ICD Codes: N99.89 - Other postprocedural complications and disorders of genitourinary system; R33.8 - Other retention of urine SNOMED: 232395548 (4) Postoperative nausea ICD Codes: R11.0 - Nausea; Z98.890 - Other specified postprocedural states SNOMED: 59020628 Status: stable Assessment/Plan Plastic surgery consulted s/p s/p debridement of bilateral groin and left axilla with flap elevation on s/p closure of wounds on 08/10/17 Encourage mobilization/ambulation Encourage incentive spirometry to optimize pulmonary hygiene DVT/GI prophylaxis as appropriate--SCDs, HSQ F/u blood cultures x 2 IV ancef Pain control, bowel regimen Nausea control Supportive care SCDs and HSQ for DVT ppx s/p gaming removal 08/12 Home health ordered DC planning for tomorrow A total of 31min of extra time was spent in addition to normal encounter time for care/coordination and counseling. D/w pt/family, RN, surgery regarding mgmt and dispo. Discussed w/ Dr. Siobhan goode wound care, d/c plan for Subjective Date patient seen: Aug 15, 2017 Time patient seen: 13:59 ROS Limited/Unobtainable: No Constitutional: Reports: no symptoms HEENT: Reports: no symptoms Cardiovascular: Reports: no symptoms Respiratory: Reports: no symptoms Gastrointestinal/Abdominal: Reports: no symptoms Genitourinary: Reports: no symptoms Neurologic/Psychiatric: Reports: no symptoms Endocrine: Reports: no symptoms Hematologic/Lymphatic: Reports: no symptoms Allergies: Coded Allergies: No Known Allergies (Unverified , 08/07/17) All Systems: reviewed and negative except above Subjective No acute o/n events s/p debridement of bilateral groin and left axilla with flap elevation POD#7 s/p closure of wounds yesterday POD#5 C/o intermittent heaviness on top of head and fatigue Pain controlled. Denies f/c, n/v, d/c chest pain, SOB. Ambulating Objective Last 24 Hour Vital Signs Date Time Temp Pulse Resp B/P (MAP) Pulse Ox O2 Delivery O2 Flow Rate FiO2 08/15/17 12:00 97.5 106 20 139/90 96 Room Air 08/15/17 08:27 98.2 107 16 120/83 98 Room Air 08/15/17 08:12 Room Air 08/15/17 08:12 99 Room Air 08/15/17 04:00 97.5 61 16 126/81 99 Room Air 08/14/17 23:31 Room Air 08/14/17 23:31 99 Room Air 08/14/17 20:00 97.4 73 18 117/69 99 Room Air 08/14/17 15:56 98.1 79 18 117/70 97 Room Air Intake and Output 08/15/17 08/16/17 19:00 07:00 Output Total 225 ml Balance -225 ml Output Urine Total 225 ml Laboratory Tests 08/15/17 05:45: Sodium Level 137, Potassium Level 4.2, Chloride Level 99, Carbon Dioxide Level 25, Anion Gap 13, Blood Urea Nitrogen 17, Creatinine 1.0, Estimat Glomerular Filtration Rate > 60, Glucose Level 99, Calcium Level 9.8, Phosphorus Level 4.2 , Magnesium Level 2.3, Total Bilirubin 0.3, Direct Bilirubin 0.1, Aspartate Amino Transf (AST/SGOT) 20, Alanine Aminotransferase (ALT/SGPT) 16, Alkaline Phosphatase 51, Total Protein 7.5, Albumin 4.3, Vitamin D 25-Hydroxy [Pending], 25-Hydroxy Vitamin D2 [Pending], 25-Hydroxy Vitamin D3 [Pending] Height (Feet): 5 Height (Inches): 6.00 Weight (Pounds): 161 Objective General: alert, cooperative, no distress, appears stated age Head: normocephalic, without obvious abnormality, atraumatic Eyes: conjunctivae/corneas clear. PERRL, EOM's intact Throat: lips, mucosa, and tongue normal. MMM Neck: supple, symmetrical, trachea midline, and no JVD Lungs: clear to auscultation bilaterally Heart: regular rate and rhythm, S1, S2 normal, no murmur, click, rub or gallop Abdomen: soft, non-tender, non-distended, bowel sounds normal; no masses or organomegaly Extremities: extremities normal, atraumatic, no cyanosis or edema Pulses: 2+ and symmetric Skin: Dressings c/d/i Neurologic: grossly normal, no focal deficits Danielle Daigle M.D. Aug 15, 2017 14:00
[2017-08-15] MEDS ORDERED: KEFLEX500 MG ORAL (14:10)
[2017-08-15] MEDS ORDERED: NORCO 5-325 TA1 EACH ORAL (14:10)
[2017-08-15 16:00] VITALS: BP 116/74
[2017-08-15 20:00] VITALS: BP 131/64
[2017-08-16] VITALS: BP 119/61
[2017-08-16 04:00] VITALS: BP 109/60
[2017-08-16] MEDS: ceFAZolin 1gm in D5W 55ml IVP SCH (05:55)
[2017-08-16 08:22] VITALS: BP 125/71
[2017-08-16] MEDS: Docusate 100mg cap ORAL SCH (08:30)
[2017-08-16] MEDS: Heparin 5000 units/ml inj SUBQ SCH (08:36)
[2017-08-16 11:22] VITALS: BP 136/81
[2017-08-16 15:53] VITALS: BP 130/88
--- NOTE | 2017-08-21 22:44 | Discharge Summary ---
Discharge Summary Hospital Course Date of Admission Aug 07, 2017 at 14:47 Date of Discharge Aug 16, 2017 at 18:00 Admitting Diagnosis abscess, cellulitis Reason for Hospitalization: abscess, cellulitis HPI 27y/o male with pmh of hidradenitis suppurative who presents with increased pain /swelling/redness/drainage from lesions. Pt presents with hidradenitis to his bilateral groin into his left axilla. Has been there for several months. He has been on oral antibiotics and has had previous operation on the groin area without success. No reports of fevers/chills, n/v, d/c, chest pain, SOB. Can ambulate several blocks and climb several flights of stairs without symptoms. Consultations Plastic surgery Procedures s/p debridement of bilateral groin and left axilla with flap elevation on s/p closure of wounds on 08/10/17 Hospital Course Pt was admitted and underwent debridement of bilateral groin and left axilla with flap elevation on 08/08/17, and then closure of wounds on 08/10/17. Pt's postop course complicated by urinary retention requiring gaming insertion. Gaming removed prior to d/c and pt able to void on own. Once pain controlled and wounds stable, pt was discharge home w/ home health for wound care. Discharge physical exam General: alert, cooperative, no distress, appears stated age Head: normocephalic, without obvious abnormality, atraumatic Eyes: conjunctivae/corneas clear. PERRL, EOM's intact Throat: lips, mucosa, and tongue normal. MMM Neck: supple, symmetrical, trachea midline, and no JVD Lungs: clear to auscultation bilaterally Heart: regular rate and rhythm, S1, S2 normal, no murmur, click, rub or gallop Abdomen: soft, non-tender, non-distended, bowel sounds normal; no masses or organomegaly Extremities: extremities normal, atraumatic, no cyanosis or edema Pulses: 2+ and symmetric Skin: dressings c/d/i Neurologic: grossly normal, no focal deficits Discharge Medications New Medications: Cephalexin* (Keflex*) 500 Mg Capsule 500 MG ORAL Q6H for 7 Days, #28 CAP 0 Refills Hydrocodone Bit/Acetaminophen 5-325* ([place] 5-325*) 1 Each Tablet 1 TAB ORAL Q6H PRN, #30 TAB 0 Refills Continued Medications: No Known Medications* (NKM - No Known Medications*) . 0 ., 0 Refills Discharge Discharge Disposition Patient was discharged to Home (01) Discharge Diagnoses: (1) Abscess (2) Hidradenitis suppurativa (3) Postoperative urinary retention (4) Postoperative nausea Danielle Daigle M.D. Aug 21, 2017 22:44
[2017-08-27 00:39] LABS: VITAMIN D 25-OH TOTAL 11 ng/mL (.)
== END 2017-08-16 18:00 | disposition home or self-care (01) | DRG 578 ==
LOC: EMR 13:30 → EDBEDREQ 14:31 → 3E 14:47
PROC: 0J8 Subcutaneous Tissue and Fascia, Division (ICD-10-PCS; principal; 2017-08-08 07:30)
PROC: 0J8M0ZZ Division of Left Upper Leg Subcutaneous Tissue and Fascia, Open Approach (ICD-10-PCS; principal; 2017-08-08 07:30)
PROC: 0JX60ZC Transfer Chest Subcutaneous Tissue and Fascia with Skin, Subcutaneous Tissue and Fascia, Open Approach (ICD-10-PCS; principal; 2017-08-08 07:30)
PROC: 0JBC0ZZ Excision of Pelvic Region Subcutaneous Tissue and Fascia, Open Approach (ICD-10-PCS; principal; 2017-08-08 07:30)
PROC: 0J8L0ZZ Division of Right Upper Leg Subcutaneous Tissue and Fascia, Open Approach (ICD-10-PCS; principal; 2017-08-08 07:30)
PROC: 0JB90ZZ Excision of Buttock Subcutaneous Tissue and Fascia, Open Approach (ICD-10-PCS; principal; 2017-08-08 07:30)
PROC: 0JBF0ZZ Excision of Left Upper Arm Subcutaneous Tissue and Fascia, Open Approach (ICD-10-PCS; principal; 2017-08-08 07:30)
PROC: 0J890ZZ Division of Buttock Subcutaneous Tissue and Fascia, Open Approach (ICD-10-PCS; 2017-08-10)
PROC: 0JD60ZZ Extraction of Chest Subcutaneous Tissue and Fascia, Open Approach (ICD-10-PCS; 2017-08-10)
PROC: 0JX60ZC Transfer Chest Subcutaneous Tissue and Fascia with Skin, Subcutaneous Tissue and Fascia, Open Approach (ICD-10-PCS; 2017-08-10)
PROC: 0JD90ZZ Extraction of Buttock Subcutaneous Tissue and Fascia, Open Approach (ICD-10-PCS; 2017-08-10)
PROC: 0JX90ZC Transfer Buttock Subcutaneous Tissue and Fascia with Skin, Subcutaneous Tissue and Fascia, Open Approach (ICD-10-PCS; 2017-08-10)
DX: L73.2 Hidradenitis suppurativa (principal); L02.214 Cutaneous abscess of groin; L02.412 Cutaneous abscess of left axilla; L02.31 Cutaneous abscess of buttock; R33.9 Retention of urine, unspecified; R11.0 Nausea
CPT/HCPCS: 36415; 80048; 80053; 80076; 81003; 82306; 83605; 83735; 84100; 85025; 85610; 85730; 87040; 93005; 94003; 94150; 94760; 99285; J2180; J2250; J2405; J2710